=== PATIENT | female | born 1930 | race Caucasian/White ===

== ENCOUNTER 2016-04-24 14:32 | Inpatient (IN) | payer MEDICARE, MEDICAID ==
[2016-04-24] MEDS ORDERED: Sodium Chloride 0.9% 10 ML Syringe FLUSH PRN (16:34)
[2016-04-24] MEDS ORDERED: HYDROmorphone 0.5 MG/0.5 ML Syringe IVPUSH ONE (16:34)
[2016-04-24] MEDS ORDERED: Ondansetron 4 MG/2 ML SDV IVPUSH ONE (16:34)
--- NOTE | 2016-04-24 17:52 | EDM.PDOC ---
ED HPI Trauma - General Chief Complaint: Lower Extremity Injury/Pain Stated Complaint: HIP PAIN Time Seen by Provider: 04/24/16 15:37 Source: Reports: Patient History Limitations: Reports: No limitations - History of Present Illness INITIAL COMMENTS - FREE TEXT/NARRATIVE: This lady said that just prior to arrival she was sitting in a chair and when she went up she suddenly got this severe excruciating stabbing pain in her left hip. She is unable to bear weight. She was brought straight to the hospital. There was never any trauma involved. She's never had any problem like this before. 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 Musculoskeletal History: Reports: Other (see below) Other Musculoskeletal History: DJD Lumbago lumbar scoliosis spondylolisthesis R knee pain Psychiatric History: Reports: Dementia, Depression Hematologic History: Reports: Blood transfusion(s) Oncologic (Cancer) History: Reports: Other (see below) Other Oncologic History: Polyp CA - Infectious Disease History Infectious Disease History: Reports: Chicken pox, Measles, Mumps - Past Surgical History GI Surgical History: Reports: Appendectomy, Colonoscopy, Other (see below) Other GI Surgeries/Procedures: cancerous polyp remote Social & Family History - Tobacco Use Smoking Status *Q: Never Smoker Second Hand Smoke Exposure: No - Caffeine Use Caffeine Use: Reports: None - Alcohol Use Days Per Week of Alcohol Use: 0 - Recreational Drug Use Recreational Drug Use: No Review of Systems - Review of Systems Review Of Systems: ROS reveals no pertinent complaints other than HPI. Trauma Exam - Physical Exam Exam: See Below Exam Limited By: No limitations General Appearance: Reports: alert, WD/WN, moderate distress, other (She appears to be having quite a bit of pain in the left hip and will not let me manipulate her left thigh) Head: Reports: atraumatic ( at all.) Throat/Mouth: Reports: Normal inspection Respiratory Exam: Reports: lungs clear Cardiovascular: Reports: regular rate, rhythm GI/Abdominal: Reports: non tender Extremities: Reports: other (After the CT scan was done and after she was medicated I reexamined the left leg and hip. Now she has good range of motion of the left thigh. I can rotate the thigh and extend the thigh at the hip. There is some mild tenderness posterior to the greater trochanter.) Neurologic: Reports: no motor/sensory deficits Skin: Reports: Normal color Course - Vital Signs Last Recorded V/S: Last Vital Signs Temp 37.5 C 04/24/16 17:11 Pulse 66 04/24/16 17:11 Resp 18 04/24/16 17:11 BP 141/75 H 04/24/16 17:11 Pulse Ox 94 L 04/24/16 17:11 - Orders/Labs/Meds Orders: Active Orders 24 hr Category Date Time Status Hip Min 2V or 3V w Pelvis Lt [CR] Stat Exams 04/24/16 15:37 Taken Hip wo Cont Lt [CT] Stat Exams 04/24/16 16:18 Taken BASIC METABOLIC PANEL,BMP [CHEM] Urgent Lab 04/24/16 17:41 Ordered CBC WITH AUTO DIFF [HEME] Urgent Lab 04/24/16 17:41 Ordered Sodium Chloride 0.9% [Saline Flush] Med 04/24/16 16:34 Active 10 ml FLUSH ASDIRECTED PRN Saline Lock Insert [OM.PC] Urgent Oth 04/24/16 16:34 Ordered Medication Orders Sodium Chloride (Saline Flush) 10 ml FLUSH ASDIRECTED PRN PRN Reason: Keep Vein Open Last Admin: 04/24/16 16:43 Dose: 10 ml Meds: Medications Generic Name Dose Route Start Last Admin Trade Name Freq PRN Reason Stop Dose Admin Sodium Chloride 10 ml 04/24/16 16:34 04/24/16 16:43 Saline Flush FLUSH 10 ml ASDIRECTED PRN Administration Keep Vein Open Discontinued Medications Generic Name Dose Route Start Last Admin Trade Name Freq PRN Reason Stop Dose Admin Hydromorphone HCl 0.5 mg 04/24/16 16:34 04/24/16 16:39 Dilaudid IVPUSH 04/24/16 16:35 0.5 mg ONETIME ONE Administration Ondansetron HCl 4 mg 04/24/16 16:34 04/24/16 16:39 Zofran IVPUSH 04/24/16 16:35 4 mg ONETIME ONE Administration - Radiology Interpretation Free Text/Narrative:: Initial plain films of the left hip were inconclusive. A CT was done of the left hip which showed no evidence of fracture however there is a hematoma of the left gluteus medius muscle. - Re-Assessments/Exams Free Text/Narrative Re-Assessment/Exam: 04/24/16 17:[address] was done we attempted to have this lady stand and walk. She was able to stand but was unable to put any weight on that left leg. The patient lives at home with her and there is no one to help care for her so we' ll need to hospitalize her area I spoke with Dr. Alvarado and he has come to the emergency room to see her. I ordered some basic lab work on this lady Departure - Departure Time of Disposition: 17:51 Disposition: Admitted As Inpatient 68 Condition: fair Clinical Impression: Hematoma of left hip Forms: ED Department Discharge - My Orders Last 24 Hours: My Active Orders 04/24/16 15:37 Hip Min 2V or 3V w Pelvis Lt [CR] Stat 04/24/16 16:18 Hip wo Cont Lt [CT] Stat 04/24/16 16:34 Sodium Chloride 0.9% [Saline Flush] 10 ml FLUSH ASDIRECTED PRN Saline Lock Insert [OM.PC] Urgent 04/24/16 17:41 BASIC METABOLIC PANEL,BMP [CHEM] Urgent CBC WITH AUTO DIFF [HEME] Urgent - Assessment/Plan Last 24 Hours: My Active Orders 04/24/16 15:37 Hip Min 2V or 3V w Pelvis Lt [CR] Stat 04/24/16 16:18 Hip wo Cont Lt [CT] Stat 04/24/16 16:34 Sodium Chloride 0.9% [Saline Flush] 10 ml FLUSH ASDIRECTED PRN Saline Lock Insert [OM.PC] Urgent 04/24/16 17:41 BASIC METABOLIC PANEL,BMP [CHEM] Urgent CBC WITH AUTO DIFF [HEME] Urgent
--- NOTE | 2016-04-24 18:50 | PCM.HP ---
H&P History of Present Illness - General Date of Service: 04/24/16 Admit Problem/Dx: Admission Diagnosis/Problem Admission Diagnosis/Problem Hematoma Source of Information: Patient, Family, Provider History Limitations: Reports: Other (memory troubles) - History of Present Illness Initial Comments - Free Text/Narative: Bam presents to the emergency room by ambulance with complaints of severe sharp left buttocks and hip pain. The pain started this afternoon while she was sitting in her recliner not doing anything. She tried to get up out of the chair and had sudden onset of severe pain. The pain radiates up towards the top of her pelvis and down into the thigh on the left side. She did not take anything at home to help the pain. She has never had pain like this before. She's not aware of any injury that she had to the leg. Today was a completely normal day up until the onset of pain. She does not report any falls. No change in activity level. No fevers, chills, chest pain or shortness of breath. No abdominal pain or nausea. She says that she feels fine except when she moves her left leg it hurts a lot. She does not have a history of bleeding issues or hematomas that she can recall. She does admit that her memory is not good but does feel like she recalls the events of today quite well. Workup in the emergency room was remarkable for a left buttock hematoma noted on CT scanning. X-ray of the hip did not reveal acute pathology. She is unable to bear weight and will be admitted for pain control, physical therapy and further workup. 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 Musculoskeletal History: Reports: Other (see below) Other Musculoskeletal History: DJD Lumbago lumbar scoliosis spondylolisthesis R knee pain Psychiatric History: Reports: Dementia, Depression Hematologic History: Reports: Blood transfusion(s) Oncologic (Cancer) History: Reports: Other (see below) Other Oncologic History: Polyp CA - Infectious Disease History Infectious Disease History: Reports: Chicken pox, Measles, Mumps - Past Surgical History GI Surgical History: Reports: Appendectomy, Colonoscopy, Other (see below) Other GI Surgeries/Procedures: cancerous polyp remote Social & Family History - Family History Hematologic: Denies: Bleeding disorder - Tobacco Use Smoking Status *Q: Never Smoker Second Hand Smoke Exposure: No - Caffeine Use Caffeine Use: Reports: None - Alcohol Use Days Per Week of Alcohol Use: 0 - Recreational Drug Use Recreational Drug Use: No H&P Review of Systems - Review of Systems: Review Of Systems: See Below Free Text/Narrative: A complete 12 point review of systems was obtained. Pertinent positives and negatives are noted in the history of present illness. All other systems were reviewed and were negative except as noted. Exam - Exam Exam: See Below - Vital Signs Vital Signs: Last Vital Signs Temp 37.5 C 04/24/16 17:11 Pulse 66 04/24/16 17:11 Resp 18 04/24/16 17:11 BP 141/75 H 04/24/16 17:11 Pulse Ox 94 L 04/24/16 17:11 Weight: 95.254 kg - Exam Quality Assessment: No: supplemental oxygen General: alert, oriented, cooperative. No: mild distress HEENT: Conjunctiva clear, Posterior pharynx clear. No: Scleral icterus Neck: supple, trachea midline. No: lymphadenopathy, thyromegaly Lungs: Clear to auscultation, Normal respiratory effort Cardiovascular: regular rate, regular rhythm. No: systolic murmur Abdomen: normal bowel sounds, soft. No: distention, tenderness Back Exam: normal inspection, full range of motion Extremities: normal inspection, other (Tenderness with palpation over the left posterior thigh). No: edema Peripheral Pulses: 2+: dorsalis pedis (L), dorsalis pedis (R) Skin: warm, dry. No: rash, ecchymosis, wound Neuro Extensive - Mental Status: alert, nl response to commands. No: oriented x3 Neuro Extensive - Motor, Sensory, Reflexes: CN II-XII intact. No: dysarthria, abnormal motor, tremor Psychiatric: alert, normal affect, normal mood - Patient Data Lab Results last 24 hrs: Laboratory Results - last 24 hr 04/24/16 04/24/16 Range/Units 17:52 17:52 WBC 19.1 H (4.5-11.0) K/uL RBC 4.90 (3.30-5.50) M/uL Hgb 14.2 (12.0-15.0) g/dL Hct 41.7 (36.0-48.0) % MCV 85 (80-98) fL MCH 29 (27-31) pg MCHC 34 (32-36) % Plt Count 566 H (150-400) K/uL Neut % (Auto) 81 H (36-66) % Lymph % (Auto) 13 L (24-44) % Swift % (Auto) 7 H (2-6) % Eos % (Auto) 0 L (2-4) % Baso % (Auto) 0 (0-1) % Sodium 139 L (140-148) mmol/L Potassium 4.2 (3.6-5.2) mmol/L Chloride 103 (100-108) mmol/L Carbon Dioxide 28 (21-32) mmol/L Anion Gap 12.2 (5.0-14.0) mmol/L BUN 19 H (7-18) mg/dL Creatinine 0.8 (0.6-1.0) mg/dL Est Cr Clr Drug Dosing 53.75 mL/min Estimated GFR (MDRD) > 60 (>60) Glucose 122 H (74-106) mg/dL Calcium 9.2 (8.5-10.1) mg/dL Result Diagrams: 04/24/16 17:52 04/24/16 17:52 Imaging Impressions last 24 hrs: CT scan of the left and hip - images personally reviewed - there is evidence for a small hematoma in the left buttocks. No other acute pathology Left hip x-ray - no evidence for fracture *Q Meaningful Use (ADM) - VTE *Q VTE Criteria *Q: VTE Pharmacological Contraindications *Q: Active Hemorrhage - Stroke *Q Stroke Criteria *Q: - AMI *Q AMI Criteria *Q: - Problem List (1) Hematoma of left hip SNOMED Code(s): 287542252 ICD Code: S70.02XA - CONTUSION OF LEFT HIP, INITIAL ENCOUNTER Status: Acute Current Visit: Yes Qualifiers: Encounter type: initial encounter Qualified Code(s): S70.02XA - Contusion of left hip, initial encounter Problem List Initiated/Reviewed/Updated: Yes Orders Last 24hrs: Active Orders 24 hr Category Date Time Status Patient Status Manage Transfer [TRANSFER] Routine ADT 04/24/16 18:43 Ordered Hip Min 2V or 3V w Pelvis Lt [CR] Stat Exams 04/24/16 15:37 Taken Hip wo Cont Lt [CT] Stat Exams 04/24/16 16:18 Taken Sodium Chloride 0.9% [Saline Flush] Med 04/24/16 16:34 Active 10 ml FLUSH ASDIRECTED PRN Saline Lock Insert [OM.PC] Urgent Oth 04/24/16 16:34 Ordered Resuscitation Status Routine Resus Stat 04/24/16 18:44 Ordered Medication Orders Sodium Chloride (Saline Flush) 10 ml FLUSH ASDIRECTED PRN PRN Reason: Keep Vein Open Last Admin: 04/24/16 16:43 Dose: 10 ml Assessment/Plan Comment:: Assessment and plan - Nontraumatic left buttocks and hip hematoma - no preceding injury. Examination relatively benign other than tenderness with palpation over the left buttock. CT scan confirmed hematoma. No evidence for fracture at this time. She is unable to bear weight and is not safe for outpatient management. -Baseline hemoglobin -Pain control with scheduled acetaminophen and tramadol -IV pain medications for severe pain -Ice pack -Physical therapy Cognitive deficits, suspected - patient reports memory troubles and has obvious memory troubles based on examination. Unclear at this point with infrequent visits to the doctor if this is new or progressive. No evidence for behavior issues. -Monitor for now Maintenance issues - - DVT prophylaxis - mechanical - GI prophylaxis - none indicated - Nutrition - regular diet - Nieto catheter - not indicated CODE STATUS - full code Admission justification - This patient will be admitted for inpatient services and is medically appropriate meeting medical necessity for inpatient admission as outlined in my documentation. I reasonably expect the patient will require inpatient services that span a period time over 2 midnights. I reasonably expect this patient to be discharged or transferred within 96 hours [facility]. Disposition - anticipate discharge to home with home health care versus possibly the alf Primary care physician - Dr. Omari Alvarado M.D.
[2016-04-24] MEDS ORDERED: Polyethylene Glycol 3350 Powder 17 GM Packet PO PRN (21:32)
[2016-04-24] MEDS ORDERED: Docusate Sodium 100 MG Cap PO PRN (21:32)
[2016-04-24] MEDS ORDERED: HYDROmorphone 0.5 MG/0.5 ML Syringe IVPUSH PRN (21:32)
[2016-04-24] MEDS ORDERED: Ondansetron 4 MG Tab.DIS PO PRN (21:32)
[2016-04-24] MEDS ORDERED: traMADol 50 MG Tab PO PRN (21:32)
[2016-04-24] MEDS: Acetaminophen 500 MG Tab PO SCH (22:34)
[2016-04-25] MEDS: Acetaminophen 500 MG Tab PO SCH ×2 (09:46→14:49)
--- NOTE | 2016-04-25 09:58 | CR ---
Moderate degenerative changes left hip. Moderate degenerative changes right hip. No evidence for fra cture.
[2016-04-25 11:05] VITALS: BP 145/68
--- NOTE | 2016-04-25 14:51 | PCM.DCSUM1 ---
Discharge Summary - Hospital Course Brief History: 85-year-old female with mild cognitive deficits who presents with acute onset of severe left buttocks pain. She was admitted for management of a left buttocks hematoma - Discharge Data Discharge Date: 04/25/16 Discharge Disposition: Home, Self-Care 01 Condition: Fair - Discharge Diagnosis/Problem(s) (1) Hematoma of left hip SNOMED Code(s): 772066308 ICD Code: S70.02XA - CONTUSION OF LEFT HIP, INITIAL ENCOUNTER Status: Acute Qualifiers: Encounter type: initial encounter Qualified Code(s): S70.02XA - Contusion of left hip, initial encounter - Patient Summary/Data Consults: Consultations 04/24/16 21:32 PT Evaluation and Treatment [CONS] Routine Please Evaluate and Treat. PT Reason for Consult: Ambulation Special Instructions: left buttocks hematoma This query below is only for informational purposes and is not editable. Hospital Course: Ute presented to the emergency room with acute left hip and buttock pain. Workup in the emergency room suggested a left buttocks hematoma. She was unable to bear weight and was not thought safe for outpatient management so she was admitted to the hospital. Given the severity of her pain and impairment in her mobility she was admitted to inpatient status with the expectation that it would take several days for her condition to improve enough for her to be discharged home. Fortunately she has shown dramatic clinical improvement overnight and has not required large doses of pain medications to achieve comfort. This morning she is able to get out of bed on her own. She has been ambulating with the use of a walker and doing this quite efficiently. There are no concerns about pain management at this time since she is only requiring acetaminophen. Examination is benign at this time. Given her rapid improvement I believe she is safe for outpatient management. Did recommend acetaminophen as needed for mild pain and also provided a prescription for tramadol to use as needed for more severe pain. she will be discharged home with her . I did encourage her to take it easy for the next several days but she should be able to advance her activity as tolerated quite safely. She should avoid strenuous activities. - Patient Instructions Diet: Regular Diet as Tolerated Activity: As Tolerated Driving: Do Not Drive (if taking pain pills) Showering/Bathing: May Shower Notify Provider of: Fever, Increased Pain, Nausea and/or Vomiting Other/Special Instructions: 1. You were in the hospital for management of a hematoma involving your left buttocks muscles. To make significant improvements with your mobility in the past 24 hours. I would recommend pain control with acetaminophen 650 mg every 4 hours as needed for pain. If you have more intense pain you could use tramadol 50 mg every 4 hours as needed. Tramadol isn't safe to take at the same time as the acetaminophen. 2. Followup next week if your pain does not continue to improve or if your pain gets worse. 3. Try to avoid taking naproxen (Aleve) for the next 2 weeks to help reduce the risk of additional bleeding into the involved muscles. 4. Please seek medical attention if you develop fever greater than 101, severe pain or inability to bear weight on your left leg - Discharge Plan Prescriptions/Med Rec: traMADol [Ultram] 50 mg PO Q4H PRN #10 tablet PRN Reason: Pain Home Medications: Home Meds Multivitamin [Multi-Vitamin Daily] 1 each PO DAILY 01/13/14 [History] traMADol [Ultram] 50 mg PO Q4H PRN #10 tablet 04/25/16 [Rx] Patient Handouts: Contusion, [id number] Referrals: Rivera Salcido MD [Primary Care Provider] - (followup next week if your symptoms do not continue to get better or if they get worse) - Discharge Summary/Plan Comment DC Time >30 min.: No (25) - Patient Data Vitals - Most Recent: Last Vital Signs Temp 36.1 C 04/25/16 11:03 Pulse 98 04/25/16 11:03 Resp 16 04/25/16 11:03 BP 145/68 H 04/25/16 11:03 Pulse Ox 93 L 04/25/16 11:03 Weight - Most Recent: 95.254 kg I&O - Last 24 hours: Intake & Output 04/24/16 04/25/16 04/25/16 22:59 06:59 14:59 Intake Total 480 480 Balance 480 480 Lab Results - Last 24 hrs: Laboratory Results - last 24 hr 04/24/16 04/25/16 04/25/16 Range/Units 20:04 04:15 04:15 WBC 17.4 H (4.5-11.0) K/uL RBC 4.48 (3.30-5.50) M/uL Hgb 12.8 (12.0-15.0) g/dL Hct 38.9 (36.0-48.0) % MCV 87 (80-98) fL MCH 29 (27-31) pg MCHC 33 (32-36) % Plt Count 530 H (150-400) K/uL PT 11.0 (9.5-12.0) sec INR 1.04 (0.80-1.20) APTT 27.3 (27.0-36.0) sec C-Reactive Protein (0.0-0.3) mg/dL Urine Color Yellow Urine Appearance Slightly cloudy Urine pH 8.0 (4.5-8.0) Ur Specific Kodak 1.015 (1.008-1.030) Urine Protein Negative (NEGATIVE) mg/dL Urine Glucose (UA) Normal (NEGATIVE) mg/dL Urine Ketones Negative (NEGATIVE) mg/dL Urine Occult Blood Negative (NEGATIVE) Urine Nitrite Negative (NEGATIVE) Urine Bilirubin Negative (NEGATIVE) Urine Urobilinogen Normal (NORMAL) mg/dL Ur Leukocyte Esterase Negative (NEGATIVE) Urine RBC 0-5 (0-5) Urine WBC 0-5 (0-5) Ur Epithelial Cells Moderate Amorphous Sediment Few Urine Bacteria Few Urine Mucus Few //17 Range/Units 04:15 WBC (4.5-11.0) K/uL RBC (3.30-5.50) M/uL Hgb (12.0-15.0) g/dL Hct (36.0-48.0) % MCV (80-98) fL MCH (27-31) pg MCHC (32-36) % Plt Count (150-400) K/uL PT (9.5-12.0) sec INR (0.80-1.20) APTT (27.0-36.0) sec C-Reactive Protein 0.13 (0.0-0.3) mg/dL Urine Color Urine Appearance Urine pH (4.5-8.0) Ur Specific Kodak (1.008-1.030) Urine Protein (NEGATIVE) mg/dL Urine Glucose (UA) (NEGATIVE) mg/dL Urine Ketones (NEGATIVE) mg/dL Urine Occult Blood (NEGATIVE) Urine Nitrite (NEGATIVE) Urine Bilirubin (NEGATIVE) Urine Urobilinogen (NORMAL) mg/dL Ur Leukocyte Esterase (NEGATIVE) Urine RBC (0-5) Urine WBC (0-5) Ur Epithelial Cells Amorphous Sediment Urine Bacteria Urine Mucus Med Orders - Current: Current Medications Acetaminophen (Tylenol Extra Strength) 1,000 mg PO TID JUANY Last Admin: 04/25/16 14:49 Dose: 1,000 mg Docusate Sodium (Colace) 100 mg PO BID PRN PRN Reason: Constipation Hydromorphone HCl (Dilaudid) 0.5 - 1 mg IVPUSH Q2H PRN PRN Reason: Pain (severe 7-10) Ondansetron HCl (Zofran Odt) 4 mg PO Q6H PRN PRN Reason: Nausea able to take PO Polyethylene Glycol (Miralax) 17 gm PO DAILY PRN PRN Reason: Constipation Sodium Chloride (Saline Flush) 10 ml FLUSH ASDIRECTED PRN PRN Reason: Keep Vein Open Last Admin: 04/24/16 16:43 Dose: 10 ml Tramadol HCl (Ultram) 50 mg PO Q4H PRN PRN Reason: Pain Discontinued Medications Hydromorphone HCl (Dilaudid) 0.5 mg IVPUSH ONETIME ONE Stop: 04/24/16 16:35 Last Admin: 04/24/16 16:39 Dose: 0.5 mg Ondansetron HCl (Zofran) 4 mg IVPUSH ONETIME ONE Stop: 04/24/16 16:35 Last Admin: 04/24/16 16:39 Dose: 4 mg *Q Meaningful Use (DIS) - VTE *Q VTE Criteria *Q: VTE Pharmacological Contraindications *Q: Active Hemorrhage - Stroke *Q Stroke Criteria *Q: - AMI *Q AMI Criteria *Q:
== END 2016-04-25 15:32 | disposition home or self-care (01) | DRG 605 ==
LOC: JP.ED 14:32 → JP.2SS 18:43
PROVIDERS: ADMIT Internal Medicine; ATTEND Internal Medicine
DX: S70.02XA Contusion of left hip, initial encounter (principal); S30.0XXA Contusion of lower back and pelvis, initial encounter; Z85.9 Personal history of malignant neoplasm, unspecified; M19.90 Unspecified osteoarthritis, unspecified site
CPT/HCPCS: 36415; 73502 ×2; 73700; 80048; 85025; J1170; J2405; J7050; 81001; 85027; 85610; 85730; 86140; 96374; 96375; 99284; 99284-25; A9270-GY

== ENCOUNTER 2016-06-24 21:32 | Emergency (ER) | payer MEDICARE, MEDICAID ==
[2016-06-24 22:17] VITALS: BP 147/78
[2016-06-24] MEDS ORDERED: Triamcinolone Acetonide 40 MG/ML 1 ML MDV INJECT PRN (22:32)
[2016-06-24] MEDS ORDERED: Bupivacaine 0.5% 30 ML SDV INFILT ONE (22:32)
--- NOTE | 2016-06-24 23:01 | EDM.PDOC ---
[id number] Complaint: LEG PAIN NOT AN ACCIDENT Time Seen by Provider: 06/24/16 22:25 Source of Information: Reports: Patient History Limitations: Reports: No Limitations - History of Present Illness INITIAL COMMENTS - FREE TEXT/NARRATIVE: 85-year-old female with an inflamed painful lateral left hip for the past several weeks but much worse in the past 24 hours. No falls or acute trauma. No fevers or chills. 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 Musculoskeletal History: Reports: Other (See Below) Other Musculoskeletal History: DJD Lumbago lumbar scoliosis spondylolisthesis R knee pain Psychiatric History: Reports: Dementia, Depression Hematologic History: Reports: Blood Transfusion(s) Oncologic (Cancer) History: Reports: Other (See Below) Other Oncologic History: Polyp CA - Infectious Disease History Infectious Disease History: Reports: Chicken Pox, Measles, Mumps - Past Surgical History Head Surgeries/Procedures: Reports: None GI Surgical History: Reports: Appendectomy, Colonoscopy, Other (See Below) Dermatological Surgical History: Reports: None Social & Family History - Family History Family Medical History: Noncontributory - Tobacco Use Smoking Status *Q: Never Smoker Second Hand Smoke Exposure: No - Caffeine Use Caffeine Use: Reports: None - Alcohol Use Days Per Week of Alcohol Use: 0 - Recreational Drug Use Recreational Drug Use: No Review of Systems - Review of Systems Review Of Systems: See Below Constitutional: Denies: Fever Respiratory: Denies: Shortness of Breath Cardiovascular: Denies: Chest Pain GI/Abdominal: Denies: Abdominal Pain Musculoskeletal: Reports: Shoulder Pain Trauma Exam - Physical Exam Exam: See Below Exam Limited By: No Limitations General Appearance: Reports: Alert, No Apparent Distress Head: Reports: Atraumatic Respiratory Exam: Reports: No Respiratory Distress, Lungs Clear Extremities: Other (Patient is very tender over the left greater trochanteric bursa.) Course - Vital Signs Last Recorded V/S: Last Vital Signs Temp 96.7 F 06/24/16 22:19 Pulse 96 06/24/16 22:19 Resp 16 06/24/16 22:19 BP 147/78 H 06/24/16 22:19 Pulse Ox 94 L 06/24/16 22:19 - Orders/Labs/Meds Meds: Medications Discontinued Medications Generic Name Dose Route Start Last Admin Trade Name Chantale PRN Reason Stop Dose Admin Bupivacaine HCl 30 ml 06/24/16 22:32 06/24/16 22:40 Marcaine 0.5% INFILT 06/24/16 22:33 30 ml ONETIME ONE Administration Triamcinolone Acetonide 40 mg 06/24/16 22:32 06/24/16 22:57 Kenalog-40 INJECT 06/24/16 22:33 20 mg ASDIRECTED PRN Administration Inflammation - Re-Assessments/Exams Free Text/Narrative Re-Assessment/Exam: 06/24/16 22:59 Area was sterilized with Betadine, 20 mg of Kenalog along with 5 mL of 0.5% Marcaine were infiltrated into the bursa area. Her symptoms resolved. She is to recheck later this week if symptoms recur with either primary care orthopedics. Departure - Departure Time of Disposition: 23:06 Disposition: Home, Self-Care 01 Condition: good Clinical Impression: Trochanteric bursitis of left hip - Discharge Information Instructions: Hip Bursitis, [id number] Referrals: Rivera Salcido MD [Primary Care Provider] - Forms: ED Department Discharge Care Plan Goals: Increase activity as tolerated and recheck later this week if symptoms recur or not improving satisfactorily. Consider seeing Daniel Ramos in in the orthopedic clinic regarding your shoulder.
== END 2016-06-24 23:06 | disposition home or self-care (01) ==
LOC: JP.ED 21:32
DX: M70.62 Trochanteric bursitis, left hip (principal); Z90.49 Acquired absence of other specified parts of digestive tract; Z79.899 Other long term (current) drug therapy
CPT/HCPCS: 20610; 99283; J3301

== ENCOUNTER 2016-11-21 14:52 | Emergency (ER) | payer MEDICARE, MEDICAID ==
[2016-11-21 15:07] VITALS: BP 148/78
[2016-11-21] MEDS ORDERED: Triamcinolone Acetonide 40 MG/ML 1 ML MDV INJECT PRN (15:27)
[2016-11-21] MEDS ORDERED: Bupivacaine 0.5% 30 ML SDV INFILT ONE (15:28)
--- NOTE | 2016-11-21 15:52 | EDM.PDOC ---
ED HPI GENERAL MEDICAL PROBLEM - General Chief Complaint: Lower Extremity Injury/Pain Stated Complaint: LEFT HIP PAIN Time Seen by Provider: 11/21/16 15:20 Source of Information: Reports: Patient, Family History Limitations: Reports: No Limitations - History of Present Illness INITIAL COMMENTS - FREE TEXT/NARRATIVE: 85-year-old female with left hip pain for the last couple of days. She had a similar syndrome this spring and responded well to a greater trochanteric bursitis injection. Her symptoms are very similar. No trauma, no fever or chills , no erythema of joints or rashes. 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: , 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 Musculoskeletal History: Reports: Other (See Below) Other Musculoskeletal History: DJD Lumbago lumbar scoliosis spondylolisthesis R knee pain Psychiatric History: Reports: Dementia, Depression Hematologic History: Reports: Blood Transfusion(s) Oncologic (Cancer) History: Reports: Other (See Below) Other Oncologic History: Polyp CA - Infectious Disease History Infectious Disease History: Reports: Chicken Pox, Measles, Mumps - Past Surgical History Head Surgeries/Procedures: Reports: None GI Surgical History: Reports: Appendectomy, Colonoscopy, Other (See Below) Dermatological Surgical History: Reports: None Social & Family History - Family History Family Medical History: Noncontributory - Tobacco Use Smoking Status *Q: Never Smoker Second Hand Smoke Exposure: No - Caffeine Use Caffeine Use: Reports: None - Alcohol Use Days Per Week of Alcohol Use: 0 - Recreational Drug Use Recreational Drug Use: No Review of Systems - Review of Systems Review Of Systems: See Below Constitutional: Denies: Fever Ears: Denies: Dizziness Respiratory: Denies: Shortness of Breath, Cough Cardiovascular: Denies: Chest Pain GI/Abdominal: Denies: Abdominal Pain Psychiatric: Reports: Confusion (Admits she is getting confused more often) ED EXAM, GENERAL - Physical Exam Exam: See Below Exam Limited By: No Limitations General Appearance: Alert, No Apparent Distress Respiratory/Chest: No Respiratory Distress, Lungs Clear Extremities: Other (Patient has tenderness to palpation over the left greater trochanteric bursa. No significant pain with movement of the hip passively, but does have pain with weightbearing) Course - Vital Signs Last Recorded V/S: Last Vital Signs Temp 97.0 F 11/21/16 15:05 Pulse 78 11/21/16 15:05 Resp 20 11/21/16 15:05 BP 148/78 H 11/21/16 15:05 Pulse Ox - Orders/Labs/Meds Meds: Medications Discontinued Medications Generic Name Dose Route Start Last Admin Trade Name Chantale PRN Reason Stop Dose Admin Bupivacaine HCl 10 ml 11/21/16 15:28 11/21/16 15:38 Marcaine 0.5% INFILT 11/21/16 15:29 10 ml ONETIME ONE Administration Triamcinolone Acetonide 40 mg 11/21/16 15:27 11/21/16 15:39 Kenalog-40 INJECT 40 mg ASDIRECTED PRN Administration Pain (mild 1-3) - Re-Assessments/Exams Free Text/Narrative Re-Assessment/Exam: 11/21/16 15:51 The greater trochanteric area of the left hip was sterilized with Betadine. 40 mg of Kenalog and 10 mL of 0.5% Marcaine were infiltrated in a fanlike distribution in and around the greater trochanteric bursa. Her symptoms resolved. I encouraged the patient to increase her activity as tolerated. Departure - Departure Time of Disposition: 16:07 Disposition: Home, Self-Care 01 Condition: Good Clinical Impression: Trochanteric bursitis of left hip - Discharge Information Instructions: Hip Bursitis, [id number] Referrals: Rivera Salcido MD [Primary Care Provider] - Forms: ED Department Discharge Care Plan Goals: Increase activity as tolerated. It may hurt 1 or 2 more days before it goes away. Return if markedly worsening or other concerns.
== END 2016-11-21 16:06 | disposition home or self-care (01) ==
LOC: JP.ED 14:52
DX: M70.62 Trochanteric bursitis, left hip (principal)
CPT/HCPCS: 20610; 99283; J3301

== ENCOUNTER 2017-01-28 13:18 | Emergency (ER) | payer MEDICARE, MEDICAID ==
[2017-01-28] MEDS ORDERED: Triamcinolone Acetonide 40 MG/ML 1 ML MDV ONE (15:47)
[2017-01-28 16:30] VITALS: BP 138/66
--- NOTE | 2017-01-29 09:47 | CR ---
Hip Min 2V or 3V Lt HISTORY: PAIN COMPARISON: 04/24/2016 FINDINGS: No acute fracture or dislocation is identified. Bony architecture is preserved. There is mild joint space narrowing and early acetabular osteophyte formation left hip similar to the prior exam. Soft t issues are unremarkable. IMPRESSION: Mild to moderate degenerative changes left hip. No acute left hip abnormality or significant interval change is identified.
--- NOTE | 2017-01-29 09:52 | CR ---
Lumbar Spine 2 or 3V HISTORY: PAIN FINDINGS: At L4-5 there is approximately 7 mm of anterior subluxation. Possible pars interarticularis defects can be seen at L4. Alignment is otherwise satisfactory. There is mild narrowing of the disc space at L4-5. Prominent disc space narrowing is present at L5-S1 with bridging anterior osteophytes. There is mild narrowing of the disc space with vacuum disc phenomenon and small anterior aspects at L3-4. No compression fractures identified. Probable facet arthropathy is seen lower lumbar spine. The re is mild rotoscoliosis convex to the left. Atherosclerotic aorta is noted. IMPRESSION: 1. Degenerative and spondylotic changes lower lumbar spine. 2. Grade 1 spondylolisthesis L4-5. 3. Lumbar rotoscoliosis convex to the left. 4. Atherosclerotic aorta is noted.
== END 2017-01-28 16:35 | disposition home or self-care (01) ==
LOC: JP.ED 13:18
DX: M51.9 Unspecified thoracic, thoracolumbar and lumbosacral intervertebral disc disorder (principal)
CPT/HCPCS: 72100; 72100-26; 73502-26-LT; 73502-LT; 99283; 99284

== ENCOUNTER 2017-02-15 20:45 | Emergency (ER) | payer MEDICARE, MEDICAID ==
[2017-02-15] MEDS ORDERED: Sodium Chloride 0.9% 1,000 ML IV SCH (22:15)
--- NOTE | 2017-02-15 23:39 | EDM.PDOC ---
ED HPI GENERAL MEDICAL PROBLEM - General Chief Complaint: Syncope Stated Complaint: ILLNESS Time Seen by Provider: 02/15/17 20:55 Source of Information: Reports: Patient, Family History Limitations: Reports: No Limitations - History of Present Illness INITIAL COMMENTS - FREE TEXT/NARRATIVE: pt was standing at the stove and was cooking she suddenly did not know exactly what was going on. She went to the chair and sat down but she does not exactly remember the incident. She remembers her son coming home a 4 pm and she does remember the ambulance coming. She has recall as to what happened earlier in the day. Onset: Today, Sudden Duration: Hour(s): Location: Reports: Head, Other (pt did not have a headache or pain anywhere. 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 Musculoskeletal History: Reports: Other (See Below) Other Musculoskeletal History: DJD Lumbago lumbar scoliosis spondylolisthesis R knee pain Psychiatric History: Reports: Dementia, Depression Hematologic History: Reports: Blood Transfusion(s) Oncologic (Cancer) History: Reports: Other (See Below) Other Oncologic History: Polyp CA - Infectious Disease History Infectious Disease History: Reports: Chicken Pox, Measles, Mumps - Past Surgical History GI Surgical History: Reports: Appendectomy, Colonoscopy, Other (See Below) Social & Family History - Family History Family Medical History: Noncontributory - Tobacco Use Smoking Status *Q: Never Smoker Second Hand Smoke Exposure: No - Caffeine Use Caffeine Use: Reports: None - Alcohol Use Days Per Week of Alcohol Use: 0 - Recreational Drug Use Recreational Drug Use: No ED ROS GENERAL - Review of Systems Review Of Systems: See Below Constitutional: Reports: No Symptoms HEENT: Reports: No Symptoms Respiratory: Reports: No Symptoms Cardiovascular: Reports: Other (pt did drop her pressure when she stood up. ) Endocrine: Reports: No Symptoms GI/Abdominal: Reports: No Symptoms : Reports: No Symptoms Musculoskeletal: Reports: No Symptoms Skin: Reports: No Symptoms Neurological: Reports: Other (pt had an incident where she couldn,t remember what she was doing. She had been standing at the stove for awhile. ) Psychiatric: Reports: No Symptoms ED EXAM, NEURO - Physical Exam Exam: See Below Text/Narrative:: pt arrived after havimng an episode where she was standing and cooking. She felt like she passed out but she never fell she just went and sat in a chair. Her vitals were good when she was picked up by the ambulance. Exam Limited By: No Limitations General Appearance: Alert, Anxious, Mild Distress, Other ( pupils are equal and reactive. ) Ears: Normal TMs Nose: Normal Inspection Throat/Mouth: Normal Inspection Head Exam: Atraumatic Neck: Normal Inspection Respiratory/Chest: No Respiratory Distress GI/Abdominal: Soft, Non-Tender (Female) Exam: Deferred Rectal (Female) Exam: Deferred Neurological: Alert Back Exam: Normal Inspection Extremities: Normal Inspection Psychiatric: Normal Affect Comments: pt was not confused on arrival. Whe she did stand up she did drop her bp some. Course - Vital Signs Last Recorded V/S: Last Vital Signs Temp 35.0 C L 02/15/17 21:04 Pulse 70 02/15/17 22:01 Resp 16 02/15/17 22:01 BP 142/70 H 02/15/17 22:01 Pulse Ox 98 02/15/17 22:01 Orthostatic Blood Pressure [ 122/60 Standing] Orthostatic Blood Pressure [ 136/72 Sitting] Orthostatic Blood Pressure [ 175/76 Supine] - Orders/Labs/Meds Orders: Active Orders 24 hr Category Date Time Status EKG Documentation Completion [RC] ASDIRECTED Care 02/15/17 21:02 Active Orthostatic Vital Signs [RC] ASDIRECTED Care 02/15/17 21:00 Active Head wo Cont [CT] Stat Exams 02/15/17 21:00 Taken Sodium Chloride 0.9% [Normal Saline] 1,000 ml Med 02/15/17 22:15 Active IV ASDIRECTED EKG 12 Lead [EK] Routine Ther 02/15/17 21:02 Ordered Medication Orders Sodium Chloride (Normal Saline) 1,000 mls @ 999 mls/hr IV ASDIRECTED JUANY Last Admin: 02/15/17 22:20 Dose: 999 mls/hr Labs: Laboratory Tests 0102/15/17 02/15/17 Range/Units 21:19 21:19 21:19 WBC 9.2 (4.5-11.0) K/uL RBC 5.30 (3.30-5.50) M/uL Hgb 14.8 D (12.0-15.0) g/dL Hct 43.0 (36.0-48.0) % MCV 81 (80-98) fL MCH 28 (27-31) pg MCHC 34 (32-36) % Plt Count 441 H (150-400) K/uL Neut % (Auto) 72 H (36-66) % Lymph % (Auto) 20 L (24-44) % [place] % (Auto) 7 H (2-6) % Eos % (Auto) 1 L (2-4) % Baso % (Auto) 0 (0-1) % Sodium 141 (140-148) mmol/L Potassium 4.2 (3.6-5.2) mmol/L Chloride 105 (100-108) mmol/L Carbon Dioxide 27 (21-32) mmol/L Anion Gap 9.5 (5.0-14.0) mmol/L BUN 19 H (7-18) mg/dL Creatinine 1.1 H (0.6-1.0) mg/dL Est Cr Clr Drug Dosing 39.79 mL/min Estimated GFR (MDRD) 47 L (>60) Glucose 170 H (74-106) mg/dL Calcium 8.9 (8.5-10.1) mg/dL Total Bilirubin 0.4 (0.2-1.0) mg/dL AST 14 L (15-37) U/L ALT 19 (12-78) U/L Alkaline Phosphatase 95 (46-116) U/L Troponin I < 0.017 (0.000-0.056) ng/mL Total Protein 6.3 L (6.4-8.2) g/dL Albumin 3.2 L (3.4-5.0) g/dL Globulin 3.1 (2.3-3.5) g/dL Albumin/Globulin Ratio 1.0 L (1.2-2.2) Urine Color Urine Appearance Urine pH (4.5-8.0) Ur Specific [place] (1.008-1.030) Urine Protein (NEGATIVE) mg/dL Urine Glucose (UA) (NEGATIVE) mg/dL Urine Ketones (NEGATIVE) mg/dL Urine Occult Blood (NEGATIVE) Urine Nitrite (NEGATIVE) Urine Bilirubin (NEGATIVE) Urine Urobilinogen (NORMAL) mg/dL Ur Leukocyte Esterase (NEGATIVE) Urine RBC (0-5) Urine WBC (0-5) Ur Epithelial Cells Amorphous Sediment Urine Bacteria Urine Mucus 02/15/17 Range/Units 23:22 WBC (4.5-11.0) K/uL RBC (3.30-5.50) M/uL Hgb (12.0-15.0) g/dL Hct (36.0-48.0) % MCV (80-98) fL MCH (27-31) pg MCHC (32-36) % Plt Count (150-400) K/uL Neut % (Auto) (36-66) % Lymph % (Auto) (24-44) % [place] % (Auto) (2-6) % Eos % (Auto) (2-4) % Baso % (Auto) (0-1) % Sodium (140-148) mmol/L Potassium (3.6-5.2) mmol/L Chloride (100-108) mmol/L Carbon Dioxide (21-32) mmol/L Anion Gap (5.0-14.0) mmol/L BUN (7-18) mg/dL Creatinine (0.6-1.0) mg/dL Est Cr Clr Drug Dosing mL/min Estimated GFR (MDRD) (>60) Glucose (74-106) mg/dL Calcium (8.5-10.1) mg/dL Total Bilirubin (0.2-1.0) mg/dL AST (15-37) U/L ALT (12-78) U/L Alkaline Phosphatase (46-116) U/L Troponin I (0.000-0.056) ng/mL Total Protein (6.4-8.2) g/dL Albumin (3.4-5.0) g/dL Globulin (2.3-3.5) g/dL Albumin/Globulin Ratio (1.2-2.2) Urine Color Yellow Urine Appearance Clear Urine pH 8.0 (4.5-8.0) Ur Specific [place] 1.010 (1.008-1.030) Urine Protein Negative (NEGATIVE) mg/dL Urine Glucose (UA) Normal (NEGATIVE) mg/dL Urine Ketones Negative (NEGATIVE) mg/dL Urine Occult Blood Negative (NEGATIVE) Urine Nitrite Negative (NEGATIVE) Urine Bilirubin Negative (NEGATIVE) Urine Urobilinogen Normal (NORMAL) mg/dL Ur Leukocyte Esterase Negative (NEGATIVE) Urine RBC Not seen (0-5) Urine WBC Not seen (0-5) Ur Epithelial Cells Rare Amorphous Sediment Not seen Urine Bacteria Not seen Urine Mucus Not seen Meds: Medications Generic Name Dose Route Start Last Admin Trade Name Chantale PRN Reason Stop Dose Admin Sodium Chloride 1,000 mls @ 999 mls/hr 02/15/17 22:15 02/15/17 22:20 Normal Saline IV 999 mls/hr ASDIRECTED JUANY Administration - Re-Assessments/Exams Free Text/Narrative Re-Assessment/Exam: 02/15/17 23:51 pt had a neg cat scan of the head. She was given a liter of fluid. She was ambulated and did well. Departure - Departure Time of Disposition: 23:52 Disposition: Home, Self-Care 01 Condition: Fair Clinical Impression: Postural hypotension - Discharge Information Referrals: PCP,None [Primary Care Provider] - Forms: ED Department Discharge Care Plan Goals: push fluids, rtc if further problems, see regular Dr in 1 week. - My Orders Last 24 Hours: My Active Orders 02/15/17 21:00 Orthostatic Vital Signs [RC] ASDIRECTED Head wo Cont [CT] Stat 02/15/17 21:02 EKG Documentation Completion [RC] ASDIRECTED EKG 12 Lead [EK] Routine 02/15/17 22:15 Sodium Chloride 0.9% [Normal Saline] 1,000 ml IV ASDIRECTED - Assessment/Plan Last 24 Hours: My Active Orders 02/15/17 21:00 Orthostatic Vital Signs [RC] ASDIRECTED Head wo Cont [CT] Stat 02/15/17 21:02 EKG Documentation Completion [RC] ASDIRECTED EKG 12 Lead [EK] Routine 02/15/17 22:15 Sodium Chloride 0.9% [Normal Saline] 1,000 ml IV ASDIRECTED
[2017-02-15 23:59] VITALS: BP 171/95
== END 2017-02-16 00:10 | disposition home or self-care (01) ==
LOC: JP.ED 20:45
DX: I95.1 Orthostatic hypotension (principal)
CPT/HCPCS: 36415; 70450; 80053; 81001; 84484; 85025; 93005; 96360; 99285; J7040; 93010; 99283; J7030

== ENCOUNTER 2017-06-03 19:59 | Emergency (ER) | payer MEDICARE, MEDICAID ==
[2017-06-03] MEDS ORDERED: Oxymetazoline 0.05% Nasal Spray 15 ML Bottle NAS ONE (20:38)
--- NOTE | 2017-06-03 20:53 | EDM.PDOC ---
ED HPI GENERAL MEDICAL PROBLEM - General Chief Complaint: ENT Problem Stated Complaint: NOSE BLEED Time Seen by Provider: 06/03/17 20:39 Source of Information: Reports: Patient, Family, RN Notes Reviewed History Limitations: Reports: No Limitations - History of Present Illness INITIAL COMMENTS - FREE TEXT/NARRATIVE: 86-year-old female presents to the emergency department day complaint of nosebleed, this started about one hour prior sternotomy able to get stopped she' s only had a nosebleed once in her life denies any other symptoms does not take anticoagulants denies pain Pain Score (Numeric/FACES): 0 - Related Data Allergies Allergy/AdvReac Type Severity Reaction Status Date / Time No Known Allergies Allergy Verified 06/03/17 20:26 Home Meds: Home Meds Multivitamin [Multi-Vitamin Daily] 1 each PO DAILY 01/13/14 [History] Past Medical History HEENT History: Reports: Impaired Vision Gastrointestinal History: Reports: Other (See Below) Other Gastrointestinal History: diverticulitis 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: , 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 Musculoskeletal History: Reports: Other (See Below) Other Musculoskeletal History: DJD Lumbago lumbar scoliosis spondylolisthesis R knee pain Psychiatric History: Reports: Dementia, Depression Hematologic History: Reports: Blood Transfusion(s) Oncologic (Cancer) History: Reports: Other (See Below) Other Oncologic History: Polyp CA - Infectious Disease History Infectious Disease History: Reports: Chicken Pox, Measles - Past Surgical History GI Surgical History: Reports: Appendectomy, Colonoscopy, Other (See Below) Social & Family History - Family History Family Medical History: Noncontributory - Tobacco Use Smoking Status *Q: Never Smoker Second Hand Smoke Exposure: No - Caffeine Use Caffeine Use: Reports: None - Alcohol Use Days Per Week of Alcohol Use: 0 - Recreational Drug Use Recreational Drug Use: No ED ROS ENT - Review of Systems Review Of Systems: See Below Constitutional: Reports: No Symptoms HEENT: Reports: Nosebleed Respiratory: Reports: No Symptoms Cardiovascular: Reports: No Symptoms GI/Abdominal: Reports: No Symptoms : Reports: No Symptoms ED EXAM, ENT - Physical Exam Exam: See Below Exam Limited By: No Limitations General Appearance: Alert, Mild Distress Nose: Normal Inspection, Active Bleeding, Dried Blood Mouth/Throat: Normal Inspection, Normal Gums, Normal Lips, Normal Oropharynx, Normal Teeth, Bleeding Respiratory/Chest: No Respiratory Distress ED ENT PROCEDURES - Epistaxis Procedure Indication: Epistaxis Recent anticoagulants/antiplatlets: No Uncontrolled HTN: No Recent septal/nasal surgery: No Site of bleeding: Left Nare Clearing of clots: Patient Blew Nose Topical Meds: Phenylephrine Ice pack to area: No Posterior packing: Long Inflatable Nasal Tampon Complications: No Course - Vital Signs Last Recorded V/S: Last Vital Signs Temp 94.6 F L 06/03/17 21:54 Pulse 81 06/03/17 21:54 Resp 12 06/03/17 21:54 BP 151/74 H 06/03/17 21:54 Pulse Ox 97 06/03/17 21:54 - Orders/Labs/Meds Orders: Active Orders 24 hr Category Date Time Status Cardiac Monitoring [RC] .As Directed Care 06/03/17 21:17 Active EKG Documentation Completion [RC] ASDIRECTED Care 06/03/17 21:17 Active Peripheral IV Care [RC] . DIRECTED Care 06/03/17 21:17 Active Sodium Chloride 0.9% [Normal Saline] 1,000 ml Med 06/03/17 21:45 Active IV ASDIRECTED Sodium Chloride 0.9% [Saline Flush] Med 06/03/17 21:17 Active 10 ml FLUSH ASDIRECTED PRN Peripheral IV Insertion Adult [OM.PC] Stat Oth 06/03/17 21:17 Ordered EKG 12 Lead [EK] Stat Ther 06/03/17 21:17 Ordered Medication Orders Sodium Chloride (Normal Saline) 1,000 mls @ 999 mls/hr IV ASDIRECTED JUANY Last Admin: 06/03/17 21:54 Dose: 999 mls/hr Sodium Chloride (Saline Flush) 10 ml FLUSH ASDIRECTED PRN PRN Reason: Keep Vein Open Last Admin: 06/03/17 21:30 Dose: 10 ml Labs: Laboratory Tests 06/03/17 06/03/17 06/03/17 Range/Units 21:17 21:17 21:17 WBC 12.8 H (4.5-11.0) K/uL RBC 5.27 (3.30-5.50) M/uL Hgb 15.1 H (12.0-15.0) g/dL Hct 43.9 (36.0-48.0) % MCV 83 (80-98) fL MCH 29 (27-31) pg MCHC 34 (32-36) % Plt Count 522 H (150-400) K/uL Neut % (Auto) 65 (36-66) % Lymph % (Auto) 26 (24-44) % [place] % (Auto) 8 H (2-6) % Eos % (Auto) 1 L (2-4) % Baso % (Auto) 0 (0-1) % PT 10.6 (9.5-12.0) sec INR 0.99 (0.80-1.20) Sodium 140 (140-148) mmol/L Potassium 4.3 (3.6-5.2) mmol/L Chloride 105 (100-108) mmol/L Carbon Dioxide 23 (21-32) mmol/L Anion Gap 11.8 (5.0-14.0) mmol/L BUN 24 H (7-18) mg/dL Creatinine 1.2 H (0.6-1.0) mg/dL Est Cr Clr Drug Dosing 36.47 mL/min Estimated GFR (MDRD) 43 L (>60) Glucose 209 H (74-106) mg/dL Calcium 8.4 L (8.5-10.1) mg/dL Total Bilirubin 0.2 (0.2-1.0) mg/dL AST 12 L (15-37) U/L ALT 20 (12-78) U/L Alkaline Phosphatase 100 (46-116) U/L CK-MB (CK-2) 0.5 (0-3.6) mg/mL Troponin I < 0.017 (0.000-0.056) ng/mL Total Protein 6.6 (6.4-8.2) g/dL Albumin 3.2 L (3.4-5.0) g/dL Globulin 3.4 (2.3-3.5) g/dL Albumin/Globulin Ratio 0.9 L (1.2-2.2) Meds: Medications Generic Name Dose Route Start Last Admin Trade Name Freq PRN Reason Stop Dose Admin Sodium Chloride 1,000 mls @ 999 mls/hr 06/03/17 21:45 06/03/17 21:54 Normal Saline IV 999 mls/hr ASDIRECTED JUANY Administration Sodium Chloride 10 ml 06/03/17 21:17 06/03/17 21:30 Saline Flush FLUSH 10 ml ASDIRECTED PRN Administration Keep Vein Open Discontinued Medications Generic Name Dose Route Start Last Admin Trade Name [place] PRN Reason Stop Dose Admin Lactated Ringer's 1,000 mls @ 500 mls/hr 06/03/17 21:30 Ringers, Lactated IV .BOLUS JUANY Oxymetazoline HCl 1 ml 06/03/17 20:38 06/03/17 20:44 Afrin Original 0.05% Nasal [place] KOMAL 06/03/17 20:39 1 ml ONETIME ONE Administration - Re-Assessments/Exams Free Text/Narrative Re-Assessment/Exam: 06/03/17 21:18 After placement of the right approximately 20 minutes later she became lightheaded and dizzy diaphoretic and hypotensive and bradycardic light, she was moved to a trauma bay for further evaluation Departure - Departure Time of Disposition: 22:20 Disposition: Home, Self-Care 01 Condition: Good Clinical Impression: Epistaxis - Discharge Information Referrals: Rivera Salcido MD [Primary Care Provider] - Forms: ED Department Discharge Additional Instructions: Take full course of antibiotics, please follow-up with your primary care provider in the next 3-4 days for reevaluation at which time the nasal tampon can be removed, please consider consultation with ear nose and throat - My Orders Last 24 Hours: My Active Orders 06/03/17 21:17 Cardiac Monitoring [RC] .As Directed EKG Documentation Completion [RC] ASDIRECTED Peripheral IV Care [RC] . DIRECTED Sodium Chloride 0.9% [Saline Flush] 10 ml FLUSH ASDIRECTED PRN Peripheral IV Insertion Adult [OM.PC] Stat EKG 12 Lead [EK] Stat 06/03/17 21:45 Sodium Chloride 0.9% [Normal Saline] 1,000 ml IV ASDIRECTED - Assessment/Plan Last 24 Hours: My Active Orders 06/03/17 21:17 Cardiac Monitoring [RC] .As Directed EKG Documentation Completion [RC] ASDIRECTED Peripheral IV Care [RC] . DIRECTED Sodium Chloride 0.9% [Saline Flush] 10 ml FLUSH ASDIRECTED PRN Peripheral IV Insertion Adult [OM.PC] Stat EKG 12 Lead [EK] Stat 06/03/17 21:45 Sodium Chloride 0.9% [Normal Saline] 1,000 ml IV ASDIRECTED Plan: Assessment Acuity = acute Site and laterality = epistaxis complicated with syncopal event Etiology = unknown etiology for epistaxis syncope probably related to recent blood loss vasovagal Manifestations = none Location of injury = Home Lab values = WBC elevated at 12.8 consistent leukocytosis creatinine elevated 1.2 consistent chronic renal failure stage GIII a EKG demonstrates a sinus rhythm with multiple PVCs Plan Bleeding was controlled with a nasal tampon she is placed on Augmentin 875 by mouth twice a day 10 days for follow-up with primary care in 3-4 days for reevaluation recommend consultation with ear nose and throat This note was dictated using [employer] voice recognition software please call with any questions on syntax or hany.
[2017-06-03] MEDS ORDERED: Sodium Chloride 0.9% 10 ML Syringe FLUSH PRN (21:17)
[2017-06-03] MEDS ORDERED: Lactated Ringers 1,000 ML IV SCH (21:30)
[2017-06-03] MEDS ORDERED: Sodium Chloride 0.9% 1,000 ML IV SCH (21:45)
[2017-06-03 21:55] VITALS: BP 151/74
== END 2017-06-03 22:40 | disposition home or self-care (01) ==
LOC: JP.ED 19:59
DX: R04.0 Epistaxis (principal)
CPT/HCPCS: 30901; 30905; 36415; 80053; 82553; 84484; 85025; 85610; 93005; 93010; 96360; 99283-25; 99284-25; A9270-GY; J7040; J7050

== ENCOUNTER 2017-08-07 16:10 | Emergency (ER) | payer MEDICARE, MEDICAID ==
[2017-08-07 17:39] VITALS: BP 164/75
--- NOTE | 2017-08-07 18:16 | EDM.PDOC ---
ED HPI GENERAL MEDICAL PROBLEM - General Chief Complaint: Back Pain or Injury Stated Complaint: BACK PAIN Time Seen by Provider: 08/07/17 18:05 Source of Information: Reports: Patient History Limitations: Reports: No Limitations - History of Present Illness INITIAL COMMENTS - FREE TEXT/NARRATIVE: 86 yo female here with low back pain since last night. Has no primary care provider, just uses the ER for everything. Says it came about as a result of cleaning her cupboards. Took ASA without relief. Pain is on left at low back. No urinary sx's. No radiation. No fever. Moving makes the pain worse. 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 Lower Back Pain Score (Numeric/FACES): 6 - Related Data Allergies Allergy/AdvReac Type Severity Reaction Status Date / Time No Known Allergies Allergy Verified 06/03/17 20:26 Home Meds: Home Meds Multivitamin [Multi-Vitamin Daily] 1 each PO DAILY 01/13/14 [History] Cyclobenzaprine [Flexeril] 5 - 10 mg PO TID PRN #14 tab 08/07/17 [Rx] Past Medical History HEENT History: Reports: Impaired Vision Gastrointestinal History: Reports: Other (See Below) Other Gastrointestinal History: diverticulitis 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: , 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 Musculoskeletal History: Reports: Other (See Below) Other Musculoskeletal History: DJD Lumbago lumbar scoliosis spondylolisthesis R knee pain Psychiatric History: Reports: Dementia, Depression Hematologic History: Reports: Blood Transfusion(s) Oncologic (Cancer) History: Reports: Other (See Below) Other Oncologic History: Polyp CA - Infectious Disease History Infectious Disease History: Reports: Chicken Pox, Measles - Past Surgical History Head Surgeries/Procedures: Reports: None GI Surgical History: Reports: Appendectomy, Colonoscopy, Other (See Below) Dermatological Surgical History: Reports: None Social & Family History - Family History Family Medical History: Noncontributory - Tobacco Use Smoking Status *Q: Never Smoker - Caffeine Use Caffeine Use: Reports: None - Recreational Drug Use Recreational Drug Use: No ED ROS GENERAL - Review of Systems Review Of Systems: See Below Constitutional: Reports: No Symptoms HEENT: Reports: No Symptoms Respiratory: Reports: No Symptoms Cardiovascular: Reports: No Symptoms GI/Abdominal: Reports: No Symptoms : Reports: No Symptoms Musculoskeletal: Reports: Back Pain Skin: Reports: No Symptoms ED EXAM,LOWER BACK PAIN/INJURY - Physical Exam Exam: See Below Exam Limited By: No Limitations General Appearance: Alert, WD/WN, No Apparent Distress Eye Exam: Bilateral Eye: Normal Inspection Ears: Normal External Exam, Normal Canal, Hearing Grossly Normal, Normal TMs Nose: Normal Inspection, Normal Mucosa, No Blood Throat/Mouth: Normal Inspection, Normal Lips, Normal Oropharynx, Normal Voice, No Airway Compromise Head: Atraumatic, Normocephalic Neck: Normal Inspection, Supple, Non-Tender Respiratory/Chest: No Respiratory Distress, Lungs Clear, Normal Breath Sounds, No Accessory Muscle Use Cardiovascular: Regular Rate, Rhythm GI/Abdominal: Normal Bowel Sounds, Soft, Non-Tender Back Exam: Normal Inspection. No: CVA Tenderness (R), CVA Tenderness (L) Extremities: Normal Inspection, Non-Tender, No Pedal Edema Neurological: Alert, Normal Mood/Affect, CN II-XII Intact, No Motor/Sensory Deficits, Oriented x 3 Psychiatric: Normal Affect Skin Exam: Warm, Dry, Intact, Normal Color, No Rash Lymphatic: No Adenopathy Course - Vital Signs Last Recorded V/S: Last Vital Signs Temp 36.1 C 08/07/17 17:47 Pulse 72 08/07/17 17:47 Resp 18 08/07/17 17:47 BP 164/75 H 08/07/17 17:47 Pulse Ox 98 08/07/17 17:47 - Orders/Labs/Meds Meds: Medications Discontinued Medications Generic Name Dose Route Start Last Admin Trade Name Freq PRN Reason Stop Dose Admin Ketorolac Tromethamine 30 mg 08/07/17 18:17 Toradol IM 08/07/17 18:18 ONETIME ONE Departure - Departure Time of Disposition: 18:30 Disposition: Home, Self-Care 01 Condition: Good Clinical Impression: Low back strain Qualifiers: Encounter type: initial encounter Qualified Code(s): S39.012A - Strain of muscle, fascia and tendon of lower back, initial encounter - Discharge Information Prescriptions: Cyclobenzaprine [Flexeril] 5 - 10 mg PO TID PRN #14 tab PRN Reason: Pain Referrals: PCP,None [Primary Care Provider] - Forms: ED Department Discharge Additional Instructions: Take Ibuprofen 400 mg every 6 hrs with food starting after midnight tonight as needed. Take acetaminophen 1000 mg every 6 hrs as needed. Use Flexeril as directed for added relief. Apply moist heat to affected area several times a day. No lifting, bending, or twisting. Recheck with your provider within the week, call for an appt.
[2017-08-07] MEDS ORDERED: Ketorolac 30 MG/ML SDV IM ONE (18:17)
== END 2017-08-07 18:36 | disposition home or self-care (01) ==
LOC: JP.ED 16:10
DX: S39.012A Strain of muscle, fascia and tendon of lower back, initial encounter (principal); Z79.899 Other long term (current) drug therapy; X50.9XXA Other and unspecified overexertion or strenuous movements or postures, initial encounter
CPT/HCPCS: 96372; 99283; J1885

== ENCOUNTER 2017-08-13 12:59 | Emergency (ER) | payer MEDICARE, MEDICAID ==
[2017-08-13] MEDS ORDERED: Sodium Chloride 0.9% 10 ML Syringe FLUSH ONE (14:06)
[2017-08-13] MEDS ORDERED: Sodium Chloride 0.9% 80 ML IV ONE (14:06)
[2017-08-13] MEDS ORDERED: Iopamidol 612 MG/ML 150 ML Bottle IV SCH (14:15)
[2017-08-13] MEDS ORDERED: Acetaminophen/HYDROcodone 325-5 MG Tab PO ONE (16:04)
[2017-08-13 16:06] VITALS: BP 103/69
--- NOTE | 2017-08-13 17:07 | EDM.PDOC ---
ED HPI GENERAL MEDICAL PROBLEM - General Chief Complaint: Back Pain or Injury Stated Complaint: BACK PAIN Time Seen by Provider: 08/13/17 13:44 Source of Information: Reports: Patient, Family History Limitations: Reports: Other (demented) - History of Present Illness INITIAL COMMENTS - FREE TEXT/NARRATIVE: Seen 2-3 days ago. Still haveing low back and rlq pain. notes she had tumor removed from abd 2 yrs ago. Worried something back. Pain now 2 wk. 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 Musculoskeletal History: Reports: Other (See Below) Other Musculoskeletal History: DJD Lumbago lumbar scoliosis spondylolisthesis R knee pain Psychiatric History: Reports: Dementia, Depression Hematologic History: Reports: Blood Transfusion(s) Oncologic (Cancer) History: Reports: Other (See Below) Other Oncologic History: Polyp CA - Infectious Disease History Infectious Disease History: Reports: Chicken Pox, Measles - Past Surgical History GI Surgical History: Reports: Appendectomy, Colonoscopy Social & Family History - Family History Family Medical History: Noncontributory - Tobacco Use Smoking Status *Q: Never Smoker - Caffeine Use Caffeine Use: Reports: None ED ROS GENERAL - Review of Systems Review Of Systems: ROS reveals no pertinent complaints other than HPI. ED EXAM,LOWER BACK PAIN/INJURY - Physical Exam Exam: See Below Exam Limited By: No Limitations General Appearance: Alert, WD/WN, Mild Distress Eye Exam: Bilateral Eye: Normal Inspection Throat/Mouth: Normal Inspection Neck: Normal Inspection Respiratory/Chest: Lungs Clear Cardiovascular: Regular Rate, Rhythm GI/Abdominal: Soft, Other (vague scattered tenderness, mild) Back Exam: Normal Inspection Neurological: Alert, Normal Mood/Affect Skin Exam: Warm, Dry Course - Vital Signs Last Recorded V/S: Last Vital Signs Temp 35.3 C 08/13/17 13:24 Pulse 80 08/13/17 16:04 Resp 16 08/13/17 16:04 BP 103/69 08/13/17 16:04 Pulse Ox 96 08/13/17 16:04 - Orders/Labs/Meds Orders: Active Orders 24 hr Category Date Time Status Abdomen Pelvis w Cont [CT] Stat Exams 08/13/17 14:40 Taken Abdomen w Cont [CT] Stat Exams 08/13/17 13:59 Taken UA W/MICROSCOPIC [URIN] Urgent Lab 08/13/17 16:04 Ordered Labs: Laboratory Tests 08/13/17 08/13/17 08/13/17 Range/Units 14:00 14:00 16:04 WBC 10.9 (4.5-11.0) K/uL RBC 5.13 (3.30-5.50) M/uL Hgb 14.2 (12.0-15.0) g/dL Hct 42.2 (36.0-48.0) % MCV 82 (80-98) fL MCH 28 (27-31) pg MCHC 34 (32-36) % Plt Count 436 H (150-400) K/uL Neut % (Auto) 73 H (36-66) % Lymph % (Auto) 19 L (24-44) % [place] % (Auto) 7 H (2-6) % Eos % (Auto) 1 L (2-4) % Baso % (Auto) 0 (0-1) % Sodium 141 (140-148) mmol/L Potassium 4.5 (3.6-5.2) mmol/L Chloride 106 (100-108) mmol/L Carbon Dioxide 25 (21-32) mmol/L Anion Gap 9.9 (5.0-14.0) mmol/L BUN 30 H (7-18) mg/dL Creatinine 1.1 H (0.6-1.0) mg/dL Est Cr Clr Drug Dosing 39.79 mL/min Estimated GFR (MDRD) 47 L (>60) Glucose 106 (74-106) mg/dL Calcium 9.2 (8.5-10.1) mg/dL Total Bilirubin 0.5 D (0.2-1.0) mg/dL AST 13 L (15-37) U/L ALT 17 (12-78) U/L Alkaline Phosphatase 115 (46-116) U/L Total Protein 6.8 (6.4-8.2) g/dL Albumin 3.4 (3.4-5.0) g/dL Globulin 3.4 (2.3-3.5) g/dL Albumin/Globulin Ratio 1.0 L (1.2-2.2) Urine Color Yellow Urine Appearance Clear Urine pH 6.5 (4.5-8.0) Ur Specific [place] 1.010 (1.008-1.030) Urine Protein Negative (NEGATIVE) mg/dL Urine Glucose (UA) Normal (NEGATIVE) mg/dL Urine Ketones Negative (NEGATIVE) mg/dL Urine Occult Blood Negative (NEGATIVE) Urine Nitrite Negative (NEGATIVE) Urine Bilirubin Negative (NEGATIVE) Urine Urobilinogen Normal (NORMAL) mg/dL Ur Leukocyte Esterase Negative (NEGATIVE) Urine RBC 0-5 (0-5) Urine WBC 0-5 (0-5) Ur Epithelial Cells Few Amorphous Sediment Not seen Urine Bacteria Not seen Urine Mucus Not seen Meds: Medications Discontinued Medications Generic Name Dose Route Start Last Admin Trade Name Freq PRN Reason Stop Dose Admin Hydrocodone Bitart/Acetaminophen 1 tab 08/13/17 16:04 08/13/17 16:30 [place] 325-5 Mg PO 08/13/17 16:05 1 tab ONETIME ONE Administration Sodium Chloride 80 mls @ 3.5 mls/sec 08/13/17 14:06 08/13/17 14:50 Normal Saline IV 08/13/17 14:07 3 mls/sec ONETIME ONE Administration Iopamidol 150 ml 08/13/17 14:15 08/13/17 14:49 Isovue-300 (61%) IV 08/13/17 23:00 132 ml . DIRECTED JUANY Administration Sodium Chloride 10 ml 08/13/17 14:06 08/13/17 14:50 Saline Flush FLUSH 08/13/17 14:07 10 ml ONETIME ONE Administration - Radiology Interpretation Free Text/Narrative:: CT shows benign liver cysts, small to moderate hiatal vernia. Nothing on exam to indicate inguinal hernnias. Nothing to cause RLQ pain. - Re-Assessments/Exams Free Text/Narrative Re-Assessment/Exam: 08/13/17 17:38 Received single tab Sharon 5/325 Departure - Departure Time of Disposition: 17:06 Disposition: Home, Self-Care 01 Condition: Fair Clinical Impression: Low back pain - Discharge Information Instructions: Back Pain, Adult, [id number] Referrals: PCP,None [Primary Care Provider] - Forms: ED Department Discharge Additional Instructions: take Sharon 5/325 (#18 tabs) 1 or 2 tabs every 4 hours as needed. continue alll your usual meds. see doctor if no better in a few days. - My Orders Last 24 Hours: My Active Orders 08/13/17 13:59 Abdomen w Cont [CT] Stat 08/13/17 14:40 Abdomen Pelvis w Cont [CT] Stat 08/13/17 16:04 UA W/MICROSCOPIC [URIN] Urgent - Assessment/Plan Last 24 Hours: My Active Orders 08/13/17 13:59 Abdomen w Cont [CT] Stat 08/13/17 14:40 Abdomen Pelvis w Cont [CT] Stat 08/13/17 16:04 UA W/MICROSCOPIC [URIN] Urgent
== END 2017-08-13 17:29 | disposition home or self-care (01) ==
LOC: JP.ED 12:59
DX: M54.5 Low back pain (principal)
CPT/HCPCS: 36415; 74177; 80053; 81001; 85025; 99284; A9270; J7030; J7050; 74160

== ENCOUNTER 2017-08-16 11:40 | Emergency (ER) | payer MEDICARE, MEDICAID ==
[2017-08-16 12:04] VITALS: BP 137/57
--- NOTE | 2017-08-16 12:51 | EDM.PDOC ---
ED HPI GENERAL MEDICAL PROBLEM - General Chief Complaint: Back Pain or Injury Stated Complaint: BACK PAIN VIA [place] Time Seen by Provider: 08/16/17 11:59 Source of Information: Reports: Patient, Family History Limitations: Reports: Other (dementia) - History of Present Illness INITIAL COMMENTS - FREE TEXT/NARRATIVE: This lady came in by ambulance after she had low back pain at home. Her gives all the history because his has sever dementia and has no idea why she is here. She does say that she is not hurting. said that she had so much pain that he could not get her out of the lift chair. She was seen here 08/13 had labs and abd ct al neg. 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: , 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 Musculoskeletal History: Reports: Other (See Below) Other Musculoskeletal History: DJD Lumbago lumbar scoliosis spondylolisthesis R knee pain Neurological History: Reports: Other (See Below) Other Neuro History: memory loss Psychiatric History: Reports: Dementia, Depression Hematologic History: Reports: Blood Transfusion(s) Oncologic (Cancer) History: Reports: Other (See Below) Other Oncologic History: Polyp CA - Infectious Disease History Infectious Disease History: Reports: Chicken Pox, Measles, Mumps - Past Surgical History Head Surgeries/Procedures: Reports: None GI Surgical History: Reports: Appendectomy, Colonoscopy, Hernia, Abdominal Other GI Surgeries/Procedures: some sort of tumour removal soft ball size 2015 Dermatological Surgical History: Reports: None Social & Family History - Family History Family Medical History: Noncontributory - Tobacco Use Smoking Status *Q: Never Smoker - Caffeine Use Caffeine Use: Reports: None - Recreational Drug Use Recreational Drug Use: No ED ROS GENERAL - Review of Systems Review Of Systems: Unable To Obtain (due to dementia. says she is well otherwise.) ED EXAM,LOWER BACK PAIN/INJURY - Physical Exam Exam: See Below Exam Limited By: No Limitations General Appearance: Alert, WD/WN, No Apparent Distress Eye Exam: Bilateral Eye: Normal Inspection Throat/Mouth: Normal Inspection Neck: Normal Inspection Respiratory/Chest: No Respiratory Distress Cardiovascular: Normal Peripheral Pulses GI/Abdominal: Non-Tender Extremities: Normal Inspection Neurological: Alert, Normal Mood/Affect, Normal Gait (nurses walked her around the block in the ER and she did just fine) Psychiatric: Normal Affect Skin Exam: Warm, Dry Course - Vital Signs Last Recorded V/S: Last Vital Signs Temp 35.2 C 08/16/17 12:09 Pulse 89 08/16/17 12:09 Resp 18 08/16/17 12:09 BP 137/57 L 08/16/17 12:09 Pulse Ox 97 08/16/17 12:09 Departure - Departure Time of Disposition: 12:51 Disposition: Home, Self-Care 01 Condition: Fair Clinical Impression: Low back pain - Discharge Information Referrals: Rivera Salcido MD [Primary Care Provider] - Additional Instructions: continue your usual medications. Return to the ER if needed or see your doctor early next week if needed.
== END 2017-08-16 13:12 | disposition home or self-care (01) ==
LOC: JP.ED 11:40
DX: M54.5 Low back pain (principal)
CPT/HCPCS: 99284

== ENCOUNTER 2017-09-30 09:32 | Emergency (ER) | payer MEDICARE, MEDICAID ==
--- NOTE | 2017-09-30 10:02 | EDM.PDOCBH ---
ED HPI GENERAL MEDICAL PROBLEM - General Chief Complaint: Behavioral/Psych Stated Complaint: ACTING OUT Time Seen by Provider: 09/30/17 09:40 Source of Information: Reports: EMS History Limitations: Reports: Altered Mental Status (Patient has very advanced dementia and confusion) - History of Present Illness INITIAL COMMENTS - FREE TEXT/NARRATIVE: 86-year-old female who lives with her has been struggling with dementia for many months, but I don't believe it is been thoroughly evaluated or formally diagnosed. It certainly is not being treated. Her last several visits in the emergency room all of her history has been supplied by her because she is so confused she is disoriented to time and place. In talking with the family they have been trying to get this assessed but the and patient insist on being left alone. 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 There are no kids , she does not know their names, her story keeps changing and she appears to have some sense of awareness that she is not thinking clearly. She also thinks she just recently got , [place] . She denies any recent trauma, illness, claims her appetite is good and has no complaints of shortness of breath, fever, nausea or vomiting or dysuria. She does not know why she is here, she just wants to be left alone. I do not believe she is on any medications, and "empty bottle" of Flexeril was found at the house. 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: , Spontaneous Musculoskeletal History: Reports: Other (See Below) Other Musculoskeletal History: DJD Lumbago lumbar scoliosis spondylolisthesis R knee pain Neurological History: Reports: Other (See Below) Other Neuro History: memory loss Psychiatric History: Reports: Dementia, Depression Hematologic History: Reports: Blood Transfusion(s) Oncologic (Cancer) History: Reports: Other (See Below) Other Oncologic History: Polyp CA - Infectious Disease History Infectious Disease History: Reports: Chicken Pox, Measles, Mumps - Past Surgical History Head Surgeries/Procedures: Reports: None GI Surgical History: Reports: Appendectomy, Colonoscopy, Hernia, Abdominal Other GI Surgeries/Procedures: some sort of tumour removal soft ball size 2015 Dermatological Surgical History: Reports: None Social & Family History - Family History Family Medical History: Noncontributory - Tobacco Use Smoking Status *Q: Never Smoker - Caffeine Use Caffeine Use: Reports: None - Recreational Drug Use Recreational Drug Use: No ED ROS GENERAL - Review of Systems Review Of Systems: Unable To Obtain (Patient denies any symptoms or complaints but I'm unsure how reliable her responses are at this time) ED EXAM, BEHAVIORAL HEALTH - Physical Exam Exam: See Below Exam Limited By: No Limitations General Appearance: Alert, No Apparent Distress Eye Exam: Bilateral Eye: EOMI Head: Atraumatic Neck: Non-Tender Respiratory/Chest: No Respiratory Distress Cardiovascular: Regular Rate, Rhythm Neurological: Alert. No: Oriented x 3 (Oriented to person only) Psychiatric: Alert, Agitated (Patient is mildly agitated and anxious she is here ) COURSE, BEHAVIORAL HEALTH COMP - Course Vital Signs: Last Vital Signs Temp 97.9 F 09/30/17 09:45 Pulse 94 09/30/17 09:45 Resp 13 09/30/17 09:45 BP 147/65 H 09/30/17 09:45 Pulse Ox 97 09/30/17 09:45 Orders, Labs, Meds: Active Orders 24 hr Category Date Time Status UA W/MICROSCOPIC [URIN] Urgent Lab 09/30/17 09:59 Ordered Laboratory Tests 09/30/17 09/30/17 09/30/17 Range/Units 09:52 09:52 09:59 WBC 6.6 (4.5-11.0) K/uL RBC 4.57 (3.30-5.50) M/uL Hgb 12.3 (12.0-15.0) g/dL Hct 37.5 (36.0-48.0) % MCV 82 (80-98) fL MCH 27 (27-31) pg MCHC 33 (32-36) % Plt Count 493 H (150-400) K/uL Neut % (Auto) 63 (36-66) % Lymph % (Auto) 27 (24-44) % [place] % (Auto) 7 H (2-6) % Eos % (Auto) 2 (2-4) % Baso % (Auto) 1 (0-1) % Sodium 141 (140-148) mmol/L Potassium 3.7 (3.6-5.2) mmol/L Chloride 105 (100-108) mmol/L Carbon Dioxide 26 (21-32) mmol/L Anion Gap 10.0 (5.0-14.0) mmol/L BUN 26 H (7-18) mg/dL Creatinine 1.1 H (0.6-1.0) mg/dL Est Cr Clr Drug Dosing TNP Estimated GFR (MDRD) 47 L (>60) Glucose 136 H (74-106) mg/dL Calcium 8.6 (8.5-10.1) mg/dL Urine Color Yellow Urine Appearance Clear Urine pH 6.5 (4.5-8.0) Ur Specific [place] 1.015 (1.008-1.030) Urine Protein Negative (NEGATIVE) mg/dL Urine Glucose (UA) Normal (NEGATIVE) mg/dL Urine Ketones 15 H (NEGATIVE) mg/dL Urine Occult Blood Negative (NEGATIVE) Urine Nitrite Negative (NEGATIVE) Urine Bilirubin Small (NEGATIVE) Urine Urobilinogen Normal (NORMAL) mg/dL Ur Leukocyte Esterase Negative (NEGATIVE) Urine RBC Not seen (0-5) Urine WBC 0-5 (0-5) Ur Epithelial Cells Not seen Amorphous Sediment Not seen Urine Bacteria Not seen Urine Mucus Few Re-Assessment/Re-Exam: Recent lab work showed some renal insufficiency, this will be rechecked. Glucometer in route was normal. We will also check for a urinary infection however this was negative last time as well. Kidney function is stable, UA was negative. Family was in agreement to come and get the patient and stay with her until her gets home. Departure - Departure Time of Disposition: 11:25 Disposition: Home, Self-Care 01 Condition: Fair Clinical Impression: Dementia Qualifiers: Dementia type: unspecified type Dementia behavioral disturbance: with behavioral disturbance Qualified Code(s): F03.91 - Unspecified dementia with behavioral disturbance - Discharge Information Instructions: Dementia Caregiver Guide Referrals: PCP,None [Primary Care Provider] - Forms: ED Department Discharge Care Plan Goals: It is strongly recommended the patient get a formal psychiatric evaluation through her primary care to assess possible treatment for her confusion and delirium. - My Orders Last 24 Hours: My Active Orders 09/30/17 09:59 UA W/MICROSCOPIC [URIN] Urgent - Assessment/Plan Last 24 Hours: My Active Orders 09/30/17 09:59 UA W/MICROSCOPIC [URIN] Urgent
[2017-09-30 10:26] VITALS: BP 147/65
== END 2017-09-30 11:38 | disposition home or self-care (01) ==
LOC: JP.ED 09:32
DX: F03.91 Unspecified dementia, unspecified severity, with behavioral disturbance (principal)
CPT/HCPCS: 36415; 80048; 81001; 85025; 99283; 99285

== ENCOUNTER 2018-07-27 21:20 | Emergency (ER) | payer MEDICARE, MEDICAID ==
[2018-07-27] MEDS ORDERED: fentaNYL 100 MCG/2 ML SDV IM ONE ×2 (21:48→23:59)
[2018-07-27] MEDS ORDERED: Lidocaine 1% with EPINEPHrine 1:100,000 50 ML MDV SUBCUT STA (21:49)
[2018-07-27] MEDS ORDERED: Bacitracin Oint 1 GM U/D Packet TOP ONE (21:49)
--- NOTE | 2018-07-27 21:54 | EDM.PDOC ---
ED HPI GENERAL MEDICAL PROBLEM - General Chief Complaint: Trauma Stated Complaint: FELL Time Seen by Provider: 07/27/18 21:38 Source of Information: Reports: Patient, Family, RN Notes Reviewed History Limitations: Reports: No Limitations - History of Present Illness INITIAL COMMENTS - FREE TEXT/NARRATIVE: 87-year-old female presents emergency department today following a fall in the half-way. She was moving around her bed tripped on something and fell forward ended up hitting the nightstand above her left eye she does have a laceration above her left eye as well as abrasion in her scalp on the left side complaining of right wrist pain and left chest pain as well Left Flank Pain Score (Numeric/FACES): 8 Left Eye Pain Score (Numeric/FACES): 7 - Related Data Allergies Allergy/AdvReac Type Severity Reaction Status Date / Time No Known Allergies Allergy Verified 09/30/17 10:32 Home Meds: Home Meds Multivitamin [Multi-Vitamin Daily] 1 each PO DAILY 01/13/14 [History] Acetaminophen [Pain & Fever] 650 mg PO BID 07/27/18 [History] Alum Hydrox/Mag Hydrox/Simeth [Maalox Advanced] 20 ml PO Q4H PRN 07/27/18 [ History] Calcitonin ([place]) [Miacalcin Nasal [place]] 1 spray NS DAILY 07/27/18 [History] Escitalopram Oxalate 20 mg PO DAILY 07/27/18 [History] Meclizine HCl 25 mg PO BID 07/27/18 [History] Meclizine HCl 25 mg PO Q8H PRN 07/27/18 [History] Past Medical History HEENT History: Reports: Impaired Vision Gastrointestinal History: Reports: Other (See Below) Other Gastrointestinal History: diverticulitis 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: Reports: , Spontaneous Musculoskeletal History: Reports: Other (See Below) Other Musculoskeletal History: DJD Lumbago lumbar scoliosis spondylolisthesis R knee pain Neurological History: Reports: Other (See Below) Other Neuro History: Dementia Psychiatric History: Reports: Dementia, Depression Hematologic History: Reports: Blood Transfusion(s) Oncologic (Cancer) History: Reports: Other (See Below) Other Oncologic History: Polyp [place] - Infectious Disease History Infectious Disease History: Reports: Chicken Pox, Measles, Mumps - Past Surgical History Head Surgeries/Procedures: Reports: None GI Surgical History: Reports: Appendectomy, Colonoscopy, Hernia, Abdominal Other GI Surgeries/Procedures: some sort of tumour removal soft ball size 2015 Dermatological Surgical History: Reports: None Social & Family History - Family History Family Medical History: Noncontributory - Tobacco Use Smoking Status *Q: Never Smoker - Caffeine Use Caffeine Use: Reports: Coffee Review of Systems - Review of Systems Review Of Systems: See Below Constitutional: Reports: No Symptoms Eyes: Reports: No Symptoms Ears: Reports: No Symptoms Nose: Reports: Epistaxis Mouth/Throat: Reports: No Symptoms Respiratory: Reports: No Symptoms Cardiovascular: Reports: No Symptoms (Is) GI/Abdominal: Reports: No Symptoms Musculoskeletal: Reports: Joint Pain (Right wrist) ED EXAM, GENERAL - Physical Exam Exam: See Below Free Text/Narrative:: Primary survey GCS 15, airway is open patent and clear lungs are clear to auscultation bilaterally and cardiovascular demonstrates a regular rate and rhythm S1 and S2 Secondary survey General: Elderly female, not in any distress, alert CSF 15 HEENT: head is small 1 cm laceration is located above the left eye with some facial swelling no ecchymosis is appreciated there is also a superficial abrasion appreciated parietal region on the left side normocephalic, eyes pupils equal round reactive to light, sclera clear no conjunctivitis appreciated, extraocular eye movements intact. Ears tympanic membranes clear and garcia landmarks and light reflex are present bilaterally canals are clear. Nose no septal deviation, nares are clear, no blood present. Mouth mucosa is moist and pink no erythema or exudate noted in soft palate, tongue is midline uvula is midline, dentures in place. Neck: Supple no thyromegaly no tracheal deviation. NO posterior midline C-spine tenderness NO evidence of intoxication GCS > 14 No focal neurological deficit NO distracting injury Nodes: Cervical nodes subclavicular nodes nontender no palpable lymphadenopathy noted. Lungs: clear to auscultation bilaterally with symmetrical respirations, no adventitious noise appreciated. Chest there is tenderness to palpation left side midaxillary line some ecchymosis is appreciated on the left breast CV: Regular rate and rhythm S1 and S2 appreciated no murmurs rubs or gallops noted. Abdomen: Soft, nontender, no palpable masses or organomegaly appreciated, no distention no guarding bowel sounds are present,. Neuro: Cranial nerves II test with pupillary light reflex 4 mm to 2 mm bilaterally, CN III test pupillary constriction, limited elevation and eye abduction bilaterally, CN IV downward movement of eyes bilaterally, CN V good jaw movement, CN lateral deviation of the eyes bilaterally to finger movement , CN VII symmetrical smile shows teeth without difficulty, CN VIII pass finger rub to ears bilaterally, CN IX adequate voice and tone, CN X adequate voice and tone no difficulty swallowing, CN XI can shrug shoulders without difficulty, CN XII can stick tongue out without difficulty, cranial nerves II to XII intact as tested, Skin: Warm and dry, intact Extremities: No tenderness shoulders elbows bilaterally she is tender over the right wrist no tenderness over the left wrist pelvic rock seems negative slight tenderness over the left knee with a superficial abrasion appreciated on the patella no tenderness to right knee no tenderness ankles bilaterally Course - Vital Signs Last Recorded V/S: Last Vital Signs Temp 95.7 F 07/27/18 21:45 Pulse 91 07/27/18 22:58 Resp 20 07/27/18 21:45 BP 147/62 H 07/27/18 22:58 Pulse Ox 95 07/27/18 22:58 - Orders/Labs/Meds Orders: Active Orders 24 hr Category Date Time Status Vaccines to be Administered [RC] PER UNIT ROUTINE Care 07/27/18 22:25 Active Meds: Medications Discontinued Medications Generic Name Dose Route Start Last Admin Trade Name [place] PRN Reason Stop Dose Admin Bacitracin 1 dose 07/27/18 21:49 07/27/18 21:57 Bacitracin Oint 1 Gm TOP 07/27/18 21:50 1 dose ONETIME ONE Administration Diphtheria/Tetanus/Acell Pertussis 0.5 ml 07/27/18 22:25 07/27/18 22:43 Adacel IM 07/27/18 22:26 0.5 ml .ONCE ONE Administration Fentanyl 50 mcg 07/27/18 21:48 07/27/18 21:56 Sublimaze IM 07/27/18 21:49 50 mcg ONETIME ONE Administration Fentanyl 50 mcg 07/27/18 23:59 Sublimaze IM 07/28/18 00:00 ONETIME ONE Lidocaine/Epinephrine 20 ml 07/27/18 21:49 07/27/18 21:57 Xylocaine 1% With Epinephrine 1:100,000 SUBCUT 07/27/18 21:50 20 ml NOW STA Administration Departure - Departure Time of Disposition: 00:02 Disposition: Home, Self-Care 01 Clinical Impression: Fracture of left orbit Qualifiers: Encounter type: initial encounter Fracture type: closed Qualified Code(s): S02.82XA - Fracture of other specified skull and facial bones, left side, initial encounter for closed fracture Nasal bone fracture Qualifiers: Encounter type: initial encounter Fracture type: closed Qualified Code(s): S02.2XXA - Fracture of nasal bones, initial encounter for closed fracture Laceration of eyebrow Qualifiers: Encounter type: initial encounter Laterality: left Qualified Code(s): S01.112A - Laceration without foreign body of left eyelid and periocular area, initial encounter Chest wall contusion Qualifiers: Encounter type: initial encounter Laterality: left Qualified Code(s): S20.212A - Contusion of left front wall of thorax, initial encounter - Discharge Information Instructions: Laceration Care, Adult, [id number], Chest Contusion, Adult, [id number], Orbital Floor Fracture Without Entrapment, Nasal Fracture, Easy-to -Read Referrals: Rivera Salcido MD [Primary Care Provider] - Forms: ED Department Discharge Additional Instructions: Follow wound care instruction sheet suture removal in 3 days, for the orbit fracture and nasal bone fracture called discussed case with Dr. Chanel . Nose and throat at [facility], recommended antibiotics is placed on Augmentin 875 by mouth twice a day 10 days, no blowing of the nose, hydrocodone 5/325 one tab by mouth every excise when necessary total #12 provided for pain control. Phone number [phone] ENT office for follow-up with ENT on Friday or of this week - My Orders Last 24 Hours: My Active Orders 07/27/18 22:25 Vaccines to be Administered [RC] PER UNIT ROUTINE - Assessment/Plan Last 24 Hours: My Active Orders 07/27/18 22:25 Vaccines to be Administered [RC] PER UNIT ROUTINE Plan: Assessment Acuity = acute Site and laterality = nasal bone fracture, left orbit fracture, left maxillary sinus fracture , chest wall contusion 1 cm laceration above the left eye Etiology = secondary to a fall at home Manifestations = none Location of injury = Home Lab values = CT scan describes fractures above detail Plan Follow wound care instruction sheet suture removal in 3 days, for the orbit fracture and nasal bone fracture called discussed case with Dr. Chanel . Nose and throat at [facility] at 2345 recommended antibiotics is placed on Augmentin 875 by mouth twice a day 10 days, no blowing of the nose hydrocodone 5/325 one tab by mouth every excise when necessary total #12 provided for pain control. Phone number [phone] ENT office for follow-up with ENT on Friday or of this week This note was dictated using [employer] voice recognition software please call with any questions on syntax or grammar.
[2018-07-27] MEDS ORDERED: Diphtheria,Pertussis(Acell),Tetanus Vaccine 0.5 ML SDV IM ONE (22:25)
--- NOTE | 2018-07-27 22:39 | CRLCR ---
INDICATION: Right wrist pain following fall TECHNIQUE: Three views right wrist COMPARISON: None FINDINGS: Bones: Alignment is normal. No fractures or bone lesions. Joint spaces: Degenerative changes carpal/metacarpal joint space of the thumb. Soft tissues: Unremarkable. IMPRESSION: No definitive evidence for acute trauma. Dictated by Brian Dennis MD @ 07/27/2018 10:38:09 PM Dictated by: Brian Dennis MD @ 07/27/2018 22:38:18 (Electronically Signed)
--- NOTE | 2018-07-27 22:44 | CRLCR ---
INDICATION: Fall, left-sided chest pain TECHNIQUE: Chest 2 views. COMPARISON: None FINDINGS: Cardiovascular and mediastinum: Heart size and vasculature are normal in caliber and appearance. Mediastinum is within normal limits. Hiatal hernia. Lungs and pleural spaces: Lungs are clear. No sign of infiltrate or mass. No sign of pleural effusion. No pneumothorax. Bones and soft tissues: No significant findings. IMPRESSION: No evidence of acute trauma. Hiatal hernia. Dictated by Brian Dennis MD @ 07/27/2018 10:40:49 PM Dictated by: Brian Dennis MD @ 07/27/2018 22:41:38 (Electronically Signed)
--- NOTE | 2018-07-27 22:54 | CRLCT ---
INDICATION: Trauma above left eye following fall TECHNIQUE: CT maxillofacial without contrast. COMPARISON: None FINDINGS: Facial bones: Fracture involving the anterior and posterior wall of the left maxillary sinus and probable nondisplaced fracture involving the floor of the left orbit. Fracture of the mid left nasal structures fracture anterior medial wall left orbit. Orbits and globes: Unremarkable. Sinuses: Opacification left maxillary sinus. Partial opacification left ethmoid air cells. Soft tissues: Unremarkable. IMPRESSION: Fracture anterior medial wall left orbit. Partial opacification of left ethmoid air cells. Probable nondisplaced fracture involving the floor of the left orbit. Fractures involving the anterior and posterior graf of the left maxillary sinus with opacification of the left maxillary sinus. Fracture involving the medial nasal strut best seen on coronal image 24. The pterygoid plates are intact. Dictated by Brian Dennis MD @ 07/27/2018 10:53:04 PM Please note that all CT scans at this facility use dose modulation, iterative reconstruction, and/or weight-based dosing when appropriate to reduce radiation dose to as low as reasonably achievable. Dictated by: Brian Dennis MD @ 07/27/2018 22:53:13 (Electronically Signed)
--- NOTE | 2018-07-27 22:56 | CRLCT ---
INDICATION: Fall TECHNIQUE: CT head without contrast. COMPARISON: 02/15/2017 FINDINGS: CSF spaces: Within normal limits for age. Brain parenchyma: The garcia-white differentiation is normal. No sign of mass, hemorrhage, or midline shift. Skull base and calvarium: Opacification left maxillary sinus and partial opacification of left ethmoid air cells. The visualized orbits are grossly unremarkable. Fractures anterior posterior graf of the left maxillary sinus. Small fracture involving the base of the left nasal bone. IMPRESSION: No evidence of acute intracranial trauma. Fractures involving the anterior and posterior graf of the of the maxillary sinus. Possible fracture involving the base of the left nasal bone. Dictated by Brian Dennis MD @ 07/27/2018 10:55:36 PM Please note that all CT scans at this facility use dose modulation, iterative reconstruction, and/or weight-based dosing when appropriate to reduce radiation dose to as low as reasonably achievable. Dictated by: Brian Dennis MD @ 07/27/2018 22:55:38 (Electronically Signed)
[2018-07-27 23:17] VITALS: BP 147/62
== END 2018-07-28 00:35 | disposition home or self-care (01) ==
LOC: JP.ED 21:20
DX: S02.82XA Fracture of other specified skull and facial bones, left side, initial encounter for closed fracture (principal); S02.2XXA Fracture of nasal bones, initial encounter for closed fracture; S01.112A Laceration without foreign body of left eyelid and periocular area, initial encounter; S20.212A Contusion of left front wall of thorax, initial encounter; Z79.899 Other long term (current) drug therapy; Z23 Encounter for immunization; W01.0XXA Fall on same level from slipping, tripping and stumbling without subsequent striking against object, initial encounter; Y92.129 Unspecified place in nursing home as the place of occurrence of the external cause
CPT/HCPCS: 70450; 70486; 71046; 73110; 90471; 90715; 96372; 99285; J3010

== ENCOUNTER 2019-05-13 21:23 | Emergency (ER) | payer MEDICAID, MEDICARE ==
[2019-05-13] MEDS ORDERED: Acetaminophen 500 MG Tab PO ONE (22:02)
--- NOTE | 2019-05-13 22:08 | EDM.PDOC ---
ED HPI GENERAL MEDICAL PROBLEM - General Chief Complaint: Lower Extremity Injury/Pain Stated Complaint: FALL VIA [facility] Time Seen by Provider: 05/13/19 21:50 Source of Information: Reports: Patient, EMS, Old Records, RN History Limitations: Reports: Other (mild dementia) - History of Present Illness INITIAL COMMENTS - FREE TEXT/NARRATIVE: 88 yo female arrives via [facility] from her [facility] in [facility] after she fell. Staff thought she may have hit her head but the fall was not witnessed and there was no LOC, nausea or HERNÁNDEZ. Does complain of hip pain, R>L. No analgesia given before arrival. Does have mild dementia. Onset: Today Onset Date: 05/13/19 Duration: Minutes: Location: Reports: Pelvis Quality: Reports: Ache Severity: Moderate Improves with: Reports: Rest Worsens with: Reports: Movement Context: Reports: Trauma Associated Symptoms: Reports: No Other Symptoms Treatments HEEL GOUGER: Reports: IV/IO, Other (see below) (none) Right Hip Pain Score (Numeric/FACES): 3 - Related Data Allergies Allergy/AdvReac Type Severity Reaction Status Date / Time No Known Allergies Allergy Verified 05/13/19 21:26 Home Meds: Home Meds Multivitamin [Multi-Vitamin Daily] 1 each PO DAILY 01/13/14 [History] Alum Hydrox/Mag Hydrox/Simeth [Maalox Advanced] 20 ml PO Q4H PRN 07/27/18 [ History] Calcitonin ([place]) [Miacalcin Nasal [place]] 1 spray NS DAILY 07/27/18 [History] Escitalopram Oxalate 5 mg PO DAILY 07/27/18 [History] Meclizine HCl 25 mg PO BID 07/27/18 [History] Meclizine HCl 25 mg PO Q8H PRN 07/27/18 [History] Acetaminophen [Tylenol] 2 tab PO BID 05/13/19 [History] Cholecalciferol (Vitamin D3) [Vitamin D3] 1,000 mcg PO DAILY 05/13/19 [History] Methyl Salicylate/Menthol [Muscle Rub] 1 dose TOP BID 05/13/19 [History] Past Medical History HEENT History: Reports: Impaired Vision Gastrointestinal History: Reports: Other (See Below) Other Gastrointestinal History: diverticulitis ENTERTAINMENT USHER History: Reports: , Spontaneous Musculoskeletal History: Reports: Other (See Below) Other Musculoskeletal History: DJD Lumbago lumbar scoliosis spondylolisthesis R knee pain Neurological History: Reports: Alzheimers Disease, Other (See Below) Other Neuro History: Dementia Psychiatric History: Reports: Dementia, Depression Endocrine/Metabolic History: Reports: Vitamin D Deficiency Hematologic History: Reports: Blood Transfusion(s) Oncologic (Cancer) History: Reports: Other (See Below) Other Oncologic History: Polyp CA - Infectious Disease History Infectious Disease History: Reports: Chicken Pox, Measles, Mumps - Past Surgical History Head Surgeries/Procedures: Reports: None GI Surgical History: Reports: Appendectomy, Colonoscopy, Hernia, Abdominal Other GI Surgeries/Procedures: some sort of tumour removal soft ball size 2014 Dermatological Surgical History: Reports: None Social & Family History - Family History Family Medical History: Noncontributory - Tobacco Use Smoking Status *Q: Never Smoker Second Hand Smoke Exposure: No - Caffeine Use Caffeine Use: Reports: None - Recreational Drug Use Recreational Drug Use: No Review of Systems - Review of Systems Review Of Systems: See Below Constitutional: Reports: No Symptoms Eyes: Reports: No Symptoms Ears: Reports: No Symptoms Nose: Reports: No Symptoms Mouth/Throat: Reports: No Symptoms Respiratory: Reports: No Symptoms Cardiovascular: Reports: No Symptoms GI/Abdominal: Reports: No Symptoms Musculoskeletal: Reports: Joint Pain ( R hip and pelvis). Denies: Joint Swelling Skin: Reports: No Symptoms Neurological: Reports: No Symptoms ED EXAM, GENERAL - Physical Exam Exam: See Below Exam Limited By: No Limitations General Appearance: Alert, WD/WN, No Apparent Distress Eye Exam: Bilateral Eye: Normal Inspection Ears: Normal External Exam, Normal Canal, Hearing Grossly Normal Ear Exam: Bilateral Ear: Auricle Normal, Canal Normal Nose: Normal Inspection, No Blood Throat/Mouth: Normal Inspection, Normal Lips, Normal Oropharynx, Normal Voice, No Airway Compromise Head: Atraumatic, Normocephalic Neck: Normal Inspection Respiratory/Chest: No Respiratory Distress, Lungs Clear, Normal Breath Sounds, No Accessory Muscle Use Cardiovascular: Regular Rate, Rhythm, No Edema Back Exam: No: CVA Tenderness (R), CVA Tenderness (L) Extremities: Normal Inspection, Normal Range of Motion, No Pedal Edema, Other ( R hip pain with pressing over that area. No back pain. ). No: Non-Tender, Pedal Edema, Limited Range of Motion Neurological: Alert, CN II-XII Intact, No Motor/Sensory Deficits Psychiatric: Normal Affect, Normal Mood Skin Exam: Warm, Dry, Intact, Normal Color, No Rash Course - Vital Signs Last Recorded V/S: Last Vital Signs Temp 35.6 C L 05/13/19 21:33 Pulse 75 05/13/19 21:33 Resp 16 05/13/19 21:33 BP 154/77 H 05/13/19 21:33 Pulse Ox 97 05/13/19 21:33 - Orders/Labs/Meds Orders: Active Orders 24 hr Category Date Time Status Pelvis 1V or 2V [CR] Stat Exams 05/13/19 21:59 Taken Meds: Medications Discontinued Medications Generic Name Dose Route Start Last Admin Trade Name Freq PRN Reason Stop Dose Admin Acetaminophen 1,000 mg 05/13/19 22:02 05/13/19 22:06 Tylenol Extra Strength PO 05/13/19 22:03 1,000 mg ONETIME ONE Administration - Radiology Interpretation Free Text/Narrative:: Pelvis X-ray-neg Departure - Departure Time of Disposition: 22:35 Disposition: Home, Self-Care 01 Condition: Fair Clinical Impression: Fall in elderly patient - Discharge Information *PRESCRIPTION DRUG MONITORING PROGRAM REVIEWED*: Not Applicable *COPY OF PRESCRIPTION DRUG MONITORING REPORT IN PATIENT DWIGHT: Not Applicable Referrals: Rivera Salcido MD [Primary Care Provider] - Forms: ED Department Discharge Additional Instructions: Acetaminophen as needed for pain relief. Recheck as needed. Sepsis Event Note - Evaluation Sepsis Screening Result: No Definite Risk - Focused Exam Vital Signs: Vital Signs Temp Pulse Resp BP Pulse Ox 05/13/19 21:33 35.6 C L 75 16 154/77 H 97 Date Exam was Performed: 05/13/19 Time Exam was Performed: 22:30 - My Orders Last 24 Hours: My Active Orders 05/13/19 21:59 Pelvis 1V or 2V [CR] Stat - Assessment/Plan Last 24 Hours: My Active Orders 05/13/19 21:59 Pelvis 1V or 2V [CR] Stat
[2019-05-13 23:09] VITALS: BP 170/71; PULSE 83
--- NOTE | 2019-05-14 14:15 | CR ---
Pelvis 1V or 2V CLINICAL HISTORY: Fall FINDINGS: There is joint space narrowing in both hips. There is some minimal cortical deformity in the left the pubis just lateral to the symphysis. A fracture line is not definitively identified. A nondisplaced cortical fracture cannot be excluded. IMPRESSION: Minimal cortical buckle near the pubic symphysis on the left is a change in contour when compared to a CT from 2018. A nondisplaced fracture cannot be excluded. If there is persistent pain repeat study or CT should be considered.
== END 2019-05-13 23:40 | disposition home or self-care (01) ==
LOC: JP.ED 21:23
DX: M25.551 Pain in right hip (principal); W19.XXXA Unspecified fall, initial encounter
CPT/HCPCS: 72170; 99283; A9270; 99282